=== PATIENT | female | born 1985 | race Caucasian/White ===

== ENCOUNTER 2020-03-11 08:04 | Outpatient (CLI) | payer OTHER, SELFPAY ==
--- NOTE | ~2020-03-11 | US_ITS ---
US thyroid INDICATION: Follow-up thyroid nodule. History of previous benign biopsy. TECHNIQUE: Real-time sonographic images of the thyroid gland were obtained. COMPARISON: Ultrasound dated 06/01/2019 and 12/07/2016 FINDINGS: The right thyroid lobe measures 5.1 x 3.6 x 2.3 cm. The left thyroid lobe measures 2.1 x 1 .4 x 0.8 cm. In the right lobe there is a 3.5 cm solid hyperechoic, wider than tall, smoothly margina tyler mass without definite internal calcifications, TR 3. In the left lobe there is a 2.7 cm cystic no dule, TR 1. IMPRESSION: 1. Stable right thyroid nodule dating back to 12/07/2016, likely benign. Reviewed, dictated and finalized at location B.
--- NOTE | ~2020-03-11 | XR_ITS ---
EXAMINATION: XR barium swallow DATE: 03/11/2020 09:05 INDICATION: Dysphagia. TECHNIQUE: The patient drank thick barium, gas-producing crystals, and thin barium. Fluoroscopic spot radiographs of the hypopharynx and esophagus were obtained. Fluoroscopy exposure time was 1.7 minut es. COMPARISON: None. FINDINGS: There is somewhat nodular mucosal contour at the anterior aspect of the vallecula. There is some asym metry to the piriform sinuses appears smaller with less caudal extension on the left without a discre te mass. The esophagus is normal without mass or stricture. Esophageal motility is normal. There is n o hiatal hernia. There was no gastroesophageal reflux with provocative maneuvers. IMPRESSION: 1. Mild asymmetry to the hypopharynx with smaller left piriform sinus but without discrete mass. Ther e is also nonspecific mucosal nodularity along the anterior vallecula which could be related to the l ingual tonsils. Consider laryngoscopy for direct visualization. 2. Normal esophagus. Reviewed, dictated and finalized at location A. IMPRESSION: 1. Mild asymmetry to the hypopharynx with smaller left piriform sinus but witho ut discrete mass. There is also nonspecific mucosal nodularity along the anteri or vallecula which could be related to the lingual tonsils. Consider laryngosco py for direct visualization. 2. Normal esophagus.
== END 2020-03-11 08:05 | disposition home or self-care (01) ==
LOC: ANHIMG 08:10
PROVIDERS: PCP Emergency Medicine; Visit Provider Otolaryngology
DX: E04.1 Nontoxic single thyroid nodule (principal)
CPT/HCPCS: 74220; 76536

== ENCOUNTER 2020-04-08 11:15 | Outpatient (CLI) | payer OTHER, SELFPAY ==
--- NOTE | 2020-04-08 11:17 | ECG_ITS ---
Measurements Intervals [place] Rate: 94 P: DC: 0 QRS: 17 QRSD: 101 T: 44 QT: 349 QTc: 438 Interpretive Statements SINUS OR ECTOPIC ATRIAL RHYTHM BASELINE ARTIFACT- I, II, III, AVR, AVL, AVF BORDERLINE ECG Electronically Signed On 04-08-2020 11:36:09 CDT by Atilio Hinojosa D.O.
[2020-04-08 12:03] LABS: Blood Urea Nitrogen 11 mg/dL (7-17); Calcium 9.2 mg/dL (8.4-10.2); Carbon Dioxide 30 mmol/L (22-30); Chloride 101 mmol/L (98-107)
[2020-04-08 12:04] LABS: Anion Gap 7 mmol/L (8-16); Estimated Glomerular Filt Rate > 60; Glucose 260 mg/dL (65-105); Potassium 4.2 mmol/L (3.4-5.0); Sodium 138 mmol/L (137-145)
== END 2020-04-08 11:16 | disposition home or self-care (01) ==
LOC: ANHSURGERY 11:17
PROVIDERS: Anesthesiology; PCP Emergency Medicine; Visit Provider Otolaryngology
DX: Z01.810 Encounter for preprocedural cardiovascular examination (principal); Z01.812 Encounter for preprocedural laboratory examination; Z51.81 Encounter for therapeutic drug level monitoring; E78.5 Hyperlipidemia, unspecified
CPT/HCPCS: 36415; 80048; 93005

== ENCOUNTER 2020-04-13 00:23 | Outpatient (CLI) | payer OTHER, SELFPAY ==
[2020-04-13 17:37] LABS: SARS-CoV-2 RNA PCR Negative
== END 2020-04-13 00:24 | disposition home or self-care (01) ==
LOC: ANHCOVIDDT 00:24
PROVIDERS: PCP Emergency Medicine; Visit Provider Otolaryngology
DX: Z01.812 Encounter for preprocedural laboratory examination (principal); Z20.828 Contact with and (suspected) exposure to other viral communicable diseases
CPT/HCPCS: 87635; C9803; U0003

== ENCOUNTER 2020-04-16 01:02 | Day surgery (SDC) | payer OTHER, SELFPAY ==
[2020-04-04 10:20] VITALS: BMI 38.3
--- NOTE | 2020-04-10 08:15 | PM.HPGS ---
History of Present Illness History of Present Illness Consent: Risks, benefits, and alternatives have been discussed and questions answered. Patient agrees to proceed with procedure. Chief complaint: Thyroid Nodule Narrative: Germania Stover is a 34 year old female is having a right thyroidectomy for a right thyroid nodule Review of Systems Review of Systems: All systems reviewed & are unremarkable except as noted in HPI and below PMFSH Past Medical History Medical History (Updated 03/25/20 @ 15:34 by Alexandra Lagunas) Depression HLD (hyperlipidemia) Pre-diabetes Family History Family History (Updated 03/08/18 @ 15:45 by DOCTOR UNKNOWN) Father Carcinoma of colon, Onset Age: 55 Social History Social History Smoking status: Never smoker Alcohol intake: never Spiritual care concerns: No Meds Home Medications and Allergies Home Medications Medication Instructions Recorded Confirmed Type buspirone 7.5 mg tablet 15 mg PO BID 07/16/19 04/04/20 History cholecalciferol (vitamin D3) 1,250 50,000 unit PO 2XW 07/16/19 04/04/20 History mcg (50,000 unit) tablet lorazepam 2 mg tablet 2 mg PO DAILY PRN 07/16/19 04/04/20 History amlodipine 5 mg PO DAILY 04/04/20 04/04/20 History fenofibrate nanocrystallized 48 mg PO DAILY 04/04/20 04/04/20 History losartan-hydrochlorothiazide 1 tablet PO DAILY 04/04/20 04/04/20 History Allergies Allergy/AdvReac Type Severity Reaction Status Date / Time No Known Allergies Allergy Verified 04/04/20 10:20 Assessment and Plan Additional Plan she is having a right thyroidectomy
[2020-04-16] VITALS (8 sets, daily range): BP systolic 131–149; BP diastolic 79–89; PULSE 93–115; RESP 16–19; TEMP 36.7–37.2; O2SAT 91–99
--- NOTE | 2020-04-16 06:14 | PM.HPGS ---
History of Present Illness History of Present Illness Consent: Risks, benefits, and alternatives have been discussed and questions answered. Patient agrees to proceed with procedure. Chief complaint: Thyroid Nodule Narrative: Germania Stover is a 34 year old female With a right thyroid nodule admitted for a right thyroidectomy Review of Systems Review of Systems: All systems reviewed & are unremarkable except as noted in HPI and below PMFSH Past Medical History Medical History (Updated 03/25/20 @ 15:34 by Alexandra Lagunas) Depression HLD (hyperlipidemia) Pre-diabetes Family History Family History (Updated 03/08/18 @ 15:45 by DOCTOR UNKNOWN) Father Carcinoma of colon, Onset Age: 55 Social History Social History Smoking status: Never smoker Alcohol intake: never Spiritual care concerns: No Meds Home Medications and Allergies Home Medications Medication Instructions Recorded Confirmed Type buspirone 7.5 mg tablet 15 mg PO BID 07/16/19 04/04/20 History cholecalciferol (vitamin D3) 1,250 50,000 unit PO 2XW 07/16/19 04/04/20 History mcg (50,000 unit) tablet lorazepam 2 mg tablet 2 mg PO DAILY PRN 07/16/19 04/04/20 History fenofibrate nanocrystallized 48 mg PO DAILY 04/04/20 04/04/20 History amlodipine 5 mg tablet See Rx Instructions .ROUTE 04/10/20 Rx .COMPLEX #30 tablet losartan 100 See Rx Instructions .ROUTE 04/10/20 Rx mg-hydrochlorothiazide 12.5 mg .COMPLEX #30 tablet tablet Allergies Allergy/AdvReac Type Severity Reaction Status Date / Time No Known Allergies Allergy Verified 04/04/20 10:20 Assessment and Plan Additional Plan Plan is a right thyroidectomy
--- NOTE | 2020-04-16 06:15 | WPDHPUPDATE1 ---
History and Physical Update Update Date/Time: 04/16/20 06:15 History and Physical has been reviewed, including an updated exam of the patient. There are NO changes in the patient's condition. Risks, benefits, and alternatives have been discussed and questions answered. Patient agrees to proceed with procedure.
[2020-04-16 08:39] LABS: Glucose Point of Care 247 (65-105)
[2020-04-16] MEDS: LACTATED RINGERS 1,000 ML 30 ML IV CONT (08:40)
[2020-04-16] MEDS: ACETAMINOPHEN 500 MG TABLET 1000 MG PO (08:41)
--- NOTE | 2020-04-16 09:14 | WPDANESEPPF ---
Anes - Initial Pre Proc Eval Procedure: Operation Date: 04/16/20 10:00 Proposed Procedures p Right Thyroidectomy - Peewee Whittington MD Date/Time: 04/16/20 09:14 Surgeon: Peewee Whittington MD Pre Op Diagnosis: Thyroid Nodule Patient Data Age: 34 Gender: F Height: 1.8 m Weight: 127.6 kg Last Vital Signs Temp 36.7 C 04/16/20 08:19 Pulse 99 04/16/20 08:19 Resp 16 04/16/20 08:19 BP 142/80 H 04/16/20 08:19 Pulse Ox 99 04/16/20 08:19 Allergies Allergy/AdvReac Type Severity Reaction Status Date / Time No Known Allergies Allergy Verified 04/16/20 08:46 Home Medications Medication Instructions Recorded Confirmed Type buspirone 7.5 mg tablet 15 mg PO BID 07/16/19 04/16/20 History cholecalciferol (vitamin D3) 1,250 50,000 unit PO 2XW 07/16/19 04/16/20 History mcg (50,000 unit) tablet lorazepam 2 mg tablet 2 mg PO DAILY PRN 07/16/19 04/16/20 History fenofibrate nanocrystallized 48 mg PO DAILY 04/04/20 04/16/20 History amlodipine 5 mg PO DAILY 04/16/20 04/16/20 History losartan-hydrochlorothiazide 1 tablet PO DAILY 04/16/20 04/16/20 History Laboratory Tests 04/16/20 08:36 POC Capillary Glucose 247 mg/dl H mg/dl (65-105) Patient hx anesthesia problems: none Family hx anesthesia problems: none PMFSH Past Medical History Medical History (Updated 04/16/20 @ 09:19 by Flako Ann MD) Anxiety Depression HLD (hyperlipidemia) HTN (hypertension) Obesity Pre-diabetes Thyroid nodule Family History Family History (Updated 03/08/18 @ 15:45 by DOCTOR UNKNOWN) Father Carcinoma of colon, Onset Age: 55 Social History Social History Smoking status: Never smoker Alcohol intake: never Spiritual care concerns: No Anes - Eval Final PreProcedure Day of Procedure 04/16/20 09:14 Patient weight: obese Heart: regular rate and rhythm Lungs: clear to auscultation and normal air movement Airway: Mallampati scale class II Neurological: alert and oriented Last oral intake: >/= 8 hours ASA classification: III Emergent: no Anesthetic plan: proceed Anesthesia type and monitoring: general ETT Informed Consent: The patient's anesthetic plan and its attendant risks and benefits were discussed with the patient/family/POA. Questions were solicited and answers provided to the satisfaction of the patient/family/POA.
--- NOTE | 2020-04-16 10:09 | PM.PROC ---
Procedure Note - Detailed Date of procedure: 04/16/20 Pre-op diagnosis: Thyroid Nodule Right thyroid nodule Post-op diagnosis: same Procedure performed: Thyroidectomy Postoperative Discharge Instructions Dr[facility] This is an information sheet to tell you some things to expect and some things not to expect when you leave the hospital after having a Thyroidectomy surgery. Please follow any specific instructions Dr. Sotelo has given you. 1. Keep the incision dry for 24 hours after surgery. Remove dressing tomorrow. After that you may get the neck wet. Pat the incision dry following a shower. Do not scrub with soap or wash cloth for the first 10 days. 2. If you have stitches to be removed, a follow up visit will be planned for removal. If your incision has been closed with dermabond (glue), this not to be removed, it will dissolve into your skin as the incision begins to heal. If steri strips are present, do not remove them until they begin to curl (usually within 7-10 days). As they begin to curl, they may be removed. Do not force steri strips off an incision. 3. Swelling at the incision site will go away in 4-6 weeks. The pink line left from the incision, will begin to fade slowly over the next 6-12 months. 4. Avoid having too much sun or sunburns while the incision is healing. Use a sunscreen or wear a scarf for protection. 5. Your incision may feel itchy while it heals. Avoid rubbing or scratching if possible. Two weeks following surgery you may begin to use a moisturizing cream along the incision. 6. Commons problems following a thyroidectomy include numbness of the skin under the chin or above the incision. This is normal and should go away in a few weeks. 7. You may feel a lump or pressure in your throat during swallowing for the next few days. This is not of concern and will go away. 8. You may feel neck stiffness, tightness, a pulling feeling, mild aching, chest discomfort, headache, ear pain or congestion. Please take the pain medication that has been prescribed to you as directed. 9. Your voice may be hoarse or weak. Pitch or tone may be changed. You may have difficulty singing. This usually goes back to normal over 6 weeks to 6 months. 10. Please notify Dr. Whittington if you have a temperature greater then 101F or continued drainage from the incision, repeated choking, difficulty breathing, severe pain or increasing in swelling and redness. 11. Do not undergo strenuous activity until your first postoperative visit to the doctor?s office and the doctor has stated that you may do so. 12. No driving a car until you are able to turn the neck side to side, which may take 1-2 weeks. No driving while under the influence of narcotic pain medication. 13. Follow up with Dr. Whittington in 1 week. Revised 02/08 Description of procedure: Thyroidectomy Postoperative Discharge Instructions Dr[facility] This is an information sheet to tell you some things to expect and some things not to expect when you leave the hospital after having a Thyroidectomy surgery. Please follow any specific instructions Dr. Sotelo has given you. 1. Keep the incision dry for 24 hours after surgery. Remove dressing tomorro
[2020-04-16] MEDS: ceFAZolin 3 GM/D5W 100 ML 100 ML IVPB (10:11)
[2020-04-16] MEDS: LIDO 1%/EPINEPHRINE 1:100,000 20 ML VIAL 5 ML INFILTRATE (10:30)
--- NOTE | 2020-04-16 11:58 | PM.PROC ---
Procedure Note - Detailed Date of procedure: 04/16/20 Pre-op diagnosis: Thyroid Nodule thyroid nodule Post-op diagnosis: same Procedure performed: right thyroidectomy Description of procedure: Thyroidectomy Postoperative Discharge Instructions Dr[facility] This is an information sheet to tell you some things to expect and some things not to expect when you leave the hospital after having a Thyroidectomy surgery. Please follow any specific instructions Dr. Sotelo has given you. 1. Keep the incision dry for 24 hours after surgery. Remove dressing tomorrow. After that you may get the neck wet. Pat the incision dry following a shower. Do not scrub with soap or wash cloth for the first 10 days. 2. If you have stitches to be removed, a follow up visit will be planned for removal. If your incision has been closed with dermabond (glue), this not to be removed, it will dissolve into your skin as the incision begins to heal. If steri strips are present, do not remove them until they begin to curl (usually within 7-10 days). As they begin to curl, they may be removed. Do not force steri strips off an incision. 3. Swelling at the incision site will go away in 4-6 weeks. The pink line left from the incision, will begin to fade slowly over the next 6-12 months. 4. Avoid having too much sun or sunburns while the incision is healing. Use a sunscreen or wear a scarf for protection. 5. Your incision may feel itchy while it heals. Avoid rubbing or scratching if possible. Two weeks following surgery you may begin to use a moisturizing cream along the incision. 6. Commons problems following a thyroidectomy include numbness of the skin under the chin or above the incision. This is normal and should go away in a few weeks. 7. You may feel a lump or pressure in your throat during swallowing for the next few days. This is not of concern and will go away. 8. You may feel neck stiffness, tightness, a pulling feeling, mild aching, chest discomfort, headache, ear pain or congestion. Please take the pain medication that has been prescribed to you as directed. 9. Your voice may be hoarse or weak. Pitch or tone may be changed. You may have difficulty singing. This usually goes back to normal over 6 weeks to 6 months. 10. Please notify Dr. Whittington if you have a temperature greater then 101F or continued drainage from the incision, repeated choking, difficulty breathing, severe pain or increasing in swelling and redness. 11. Do not undergo strenuous activity until your first postoperative visit to the doctor?s office and the doctor has stated that you may do so. 12. No driving a car until you are able to turn the neck side to side, which may take 1-2 weeks. No driving while under the influence of narcotic pain medication. 13. Follow up with Dr. Whittington in 1 week. Revised 02/08 Anesthesia: GLMA Surgeon: Peewee Whittington MD Pathology: yes Complications: No immediate complications Condition: stable Disposition: PACU Findings: right thyroid nodule
[2020-04-16] MEDS: ONDANSETRON INJ 4 MG/2 ML VIAL IV PUSH (12:39)
--- NOTE | 2020-04-17 07:15 | PM.PROC ---
Procedure Note - Detailed Date of procedure: 04/16/20 Pre-op diagnosis: Thyroid Nodule thyroid nodule right-sided Post-op diagnosis: same Procedure performed: right thyroidectomy Description of procedure: Patient prepped and draped usual fashion duction general anesthesia a low collar incision was made and subplatysmal flaps elevated midline strap muscle divided the [] thyroid was identified a large cyst was identified in the [] thyroid lobe with the the ligature of the superior mid middle middle pedicles were removed the isthmus was divided the parathyroid was identified and left undisturbed the recurrent laryngeal nerve was identified hematuria placed for hemostasis and closed in layers with chromic and Monocryl Anesthesia: GLMA and GETA Surgeon: Peewee Whittington MD Estimated blood loss (mL): 10 Drains: No Packing: No Pathology: yes Complications: No immediate complications Condition: stable Disposition: PACU Findings: right thyroid nodule
== END 2020-04-16 13:25 | disposition home or self-care (01) ==
PROVIDERS: PCP Emergency Medicine; Visit Provider Otolaryngology
PROC: (CPT 60220; principal; 2020-04-16 10:00)
DX: E04.9 Nontoxic goiter, unspecified (principal); I10 Essential (primary) hypertension; E78.5 Hyperlipidemia, unspecified; R73.03 Prediabetes; F41.8 Other specified anxiety disorders; E66.9 Obesity, unspecified; Z68.39 Body mass index [BMI] 39.0-39.9, adult
CPT/HCPCS: 60220; 88307; A9270; J0690; J2250; J2405; J3010; J7120

== ENCOUNTER → 2020-10-12 02:45 | Outpatient (CLI) | payer OTHER, SELFPAY ==
[2020-10-12 19:44] LABS: SARS-CoV-2 RNA PCR Negative
== END ==
PROVIDERS: PCP Emergency Medicine; Visit Provider Internal Medicine Gastroenterology
DX: Z01.812 Encounter for preprocedural laboratory examination (principal); Z20.822 Contact with and (suspected) exposure to COVID-19
CPT/HCPCS: C9803; U0003; U0005

== ENCOUNTER 2020-10-16 00:18 | Day surgery (SDC) | payer OTHER, SELFPAY ==
[2020-10-04 09:41] VITALS: BMI 39.0
[2020-10-16 09:49] VITALS: BP 152/84; PULSE 91; RESP 16; TEMP 36.4; O2SAT 98; BMI 38.0
[2020-10-16] MEDS: LACTATED RINGERS 1,000 ML 150 ML IV CONT (10:00)
[2020-10-16 10:08] LABS: Glucose Point of Care 165 (65-105)
--- NOTE | 2020-10-16 10:29 | WPDANESEPPF ---
Anes - Initial Pre Proc Eval Procedure: Operation Date: 10/16/20 10:45 Proposed Procedures p Screening Colonoscopy - Maco Maldonado MD Date/Time: 10/16/20 10:29 Surgeon: Maco Maldonado MD Pre Op Diagnosis: neoplasm screening, family hx colon CA Patient Data Age: 35 Gender: F Height: 5 ft 11 in Weight: 123.7 kg Last Vital Signs Temp 97.6 F 10/16/20 09:49 Pulse 91 10/16/20 09:49 Resp 16 10/16/20 09:49 BP 152/84 H 10/16/20 09:49 Pulse Ox 98 10/16/20 09:49 Allergies Allergy/AdvReac Type Severity Reaction Status Date / Time No Known Allergies Allergy Verified 10/16/20 09:44 Home Medications Medication Instructions Recorded Confirmed Type cholecalciferol (vitamin D3) 1,250 50,000 unit PO 2XW 07/16/19 10/16/20 History mcg (50,000 unit) tablet metformin 500 mg tablet 500 mg PO BID #180 tablet 09/23/20 10/16/20 Rx amlodipine 5 mg tablet See Rx Instructions .ROUTE 10/04/20 10/16/20 Rx .COMPLEX #90 tablet buspirone 5 mg PO BID 10/04/20 10/16/20 History fenofibrate nanocrystallized 48 mg See Rx Instructions .ROUTE 10/04/20 10/16/20 Rx tablet .COMPLEX #90 tablet loratadine [Claritin] 10 mg PO DAILY 10/04/20 10/16/20 History losartan 100 See Rx Instructions .ROUTE 10/04/20 10/16/20 Rx mg-hydrochlorothiazide 12.5 mg .COMPLEX #90 tablet tablet Laboratory Tests 10/16/20 09:54 POC Capillary Glucose 165 mg/dl H mg/dl (65-105) Patient hx anesthesia problems: none Family hx anesthesia problems: none PMFSH Past Medical History Medical History Anxiety Depression HLD (hyperlipidemia) HTN (hypertension) Obesity Pre-diabetes Thyroid nodule Family History Family History Father Carcinoma of colon, Onset Age: 55 Social History Social History Smoking status: Never smoker Alcohol intake: never Living arrangements: with family Gender identity (if verbalized by the patient): Female Spiritual care concerns: No Anes - Eval Final PreProcedure Day of Procedure 10/16/20 10:29 Patient weight: obese Heart: regular rate and rhythm Lungs: clear to auscultation Airway: Mallampati scale class II Neurological: alert and oriented Last oral intake: >/= 8 hours ASA classification: III Emergent: no Anesthetic plan: proceed Anesthesia type and monitoring: general GIVS and standard monitoring Informed Consent: The patient's anesthetic plan and its attendant risks and benefits were discussed with the patient/family/POA. Questions were solicited and answers provided to the satisfaction of the patient/family/POA.
--- NOTE | 2020-10-16 10:58 | PM.HPGS ---
History of Present Illness History of Present Illness Consent: Risks, benefits, and alternatives have been discussed and questions answered. Patient agrees to proceed with procedure. Chief complaint: neoplasm screening, family hx colon CA Narrative: Germania Stover is a 35 year old female with colon cancer in her father at 40's, this is her first colonoscopy Review of Systems Constitutional: Constitutional: Denies headache(s) and Denies weakness Eyes: Eyes: Denies blurry vision ENT: Reports Normal hearing present, Denies headache(s) and Denies neck pain Cardiovascular: Cardiovascular: Denies chest pain and Denies dyspnea Respiratory: Respiratory: Denies dyspnea Gastrointestinal: Gastrointestinal: Reports no additional gastrointestinal complaints Genitourinary: Genitourinary: Denies dysuria Musculoskeletal: Musculoskeletal: Denies neck pain Integumentary/Breasts: Skin/Breast: Denies dry skin Neurologic: Reports Normal hearing present, Denies headache(s) and Denies weakness Psychiatric: Psychiatric: Denies anxiety Endocrine: Endocrine: Denies change in body appearance Hematologic/Lymphatic: Hematologic/Lymphatic: Denies easy bleeding Allergic/Immunologic: Allergic/Immunologic: Denies urticaria PMFSH Past Medical History Medical History Anxiety Depression HLD (hyperlipidemia) HTN (hypertension) Obesity Pre-diabetes Thyroid nodule Family History Family History Father Carcinoma of colon, Onset Age: 55 Social History Social History Smoking status: Never smoker Alcohol intake: never Living arrangements: with family Gender identity (if verbalized by the patient): Female Spiritual care concerns: No Meds Home Medications and Allergies Home Medications Medication Instructions Recorded Confirmed Type cholecalciferol (vitamin D3) 1,250 50,000 unit PO 2XW 07/16/19 10/16/20 History mcg (50,000 unit) tablet metformin 500 mg tablet 500 mg PO BID #180 tablet 09/23/20 10/16/20 Rx amlodipine 5 mg tablet See Rx Instructions .ROUTE 10/04/20 10/16/20 Rx .COMPLEX #90 tablet buspirone 5 mg PO BID 10/04/20 10/16/20 History fenofibrate nanocrystallized 48 mg See Rx Instructions .ROUTE 10/04/20 10/16/20 Rx tablet .COMPLEX #90 tablet loratadine [Claritin] 10 mg PO DAILY 10/04/20 10/16/20 History losartan 100 See Rx Instructions .ROUTE 10/04/20 10/16/20 Rx mg-hydrochlorothiazide 12.5 mg .COMPLEX #90 tablet tablet Allergies Allergy/AdvReac Type Severity Reaction Status Date / Time No Known Allergies Allergy Verified 10/16/20 09:44 Vital Signs Vital Signs - 24 hr 10/16/20 09:49 Temperature 97.6 F Pulse Rate 91 Respiratory Rate 16 Blood Pressure 152/84 H Pulse Oximetry 98 Exam Const: General: comfortable and no acute distress HENMT: General nose exam: Normal nares present Eyes: General: appearance normal, both eyes and all related structures Neck: Neck: no JVD Resp: Auscultation: clear to auscultation bilaterally Cardio: Rate: regular rate Rhythm: regular rhythm GI: Inspection: non-distended GI Palp: Yes Soft to palpation Skin: General skin exam: normal color Neuro: General: gait normal Speech: normal speech Extrem: General: normal to inspection Psych: Mental Status: mental status grossly normal Assessment and Plan Assessment and plan (1) Family history of colon cancer in father: Code(s): Z80.0 - Family history of malignant neoplasm of digestive organs Status: Acute Assessment and Plan: colonoscopy
[2020-10-16 11:29] VITALS: BP 132/87; PULSE 79; RESP 18; O2SAT 99
[2020-10-16 11:39] VITALS: BP 137/86; PULSE 75; RESP 21; O2SAT 99
[2020-10-16 11:49] VITALS: BP 143/90; PULSE 77; RESP 14; O2SAT 100
== END 2020-10-16 12:11 | disposition home or self-care (01) ==
PROVIDERS: PCP Emergency Medicine; Visit Provider Internal Medicine Gastroenterology
PROC: 0DJD8ZZ Inspection of Lower Intestinal Tract, Via Natural or Artificial Opening Endoscopic (ICD-10-PCS; CPT 45378; principal; 2020-10-16 10:45)
DX: Z12.11 Encounter for screening for malignant neoplasm of colon (principal); K63.5 Polyp of colon; Z80.0 Family history of malignant neoplasm of digestive organs; Z79.84 Long term (current) use of oral hypoglycemic drugs; I10 Essential (primary) hypertension; E78.5 Hyperlipidemia, unspecified; R73.03 Prediabetes; F41.8 Other specified anxiety disorders; E66.9 Obesity, unspecified; Z68.38 Body mass index [BMI] 38.0-38.9, adult
CPT/HCPCS: 45385; 82948; 88305; J2704; J7120

== ENCOUNTER 2020-10-23 09:01 | Emergency (ER) | payer OTHER, SELFPAY ==
[2020-10-23 09:12] VITALS: BP 182/86; PULSE 93; RESP 14; TEMP 36.1; O2SAT 100
--- NOTE | 2020-10-23 09:43 | ED.GENADULT ---
HPI - General Adult General Chief complaint: Back Pain/Injury <TRACEE Elias Last Filed: 10/23/20 09:50> Stated complaint: back pain <TRACEE Elias Last Filed: 10/23/20 09:50> Time Seen by Provider: 10/23/20 09:07 <TRACEE Elias Last Filed: 10/23/20 09:50> Source: patient <TRACEE Elias Last Filed: 10/23/20 09:50> Mode of arrival: ambulatory <TRACEE Elias Last Filed: 10/23/20 09:50> Limitations: no limitations <TRACEE Elias Last Filed: 10/23/20 09:50> History of Present Illness HPI narrative: Patient is a 35-year-old female who presents to emergency department for evaluation of left lower back pain over the SI region that radiates down the leg to the foot with tingling patient with history of chronic low back pain with surgery roughly 15 years ago patient had recent colonoscopy and then a day after which developed this pain patient has been taking ibuprofen with minimal improvement patient has otherwise not been seen for this complaint presents in no distress patient denies recent illness or other complaints and notes that she has not had any bowel or urinary issues <TRACEE Elias Last Filed: 10/23/20 09:50> Related Data Home medications: Home Medications Medication Instructions Recorded Confirmed cholecalciferol (vitamin D3) 1,250 50,000 unit PO 2XW 07/16/19 10/16/20 mcg (50,000 unit) tablet buspirone 5 mg PO BID 10/04/20 10/16/20 loratadine [Claritin] 10 mg PO DAILY 10/04/20 10/16/20 <TRACEE Elias Last Filed: 10/23/20 09:50> Allergies/adverse reactions: Allergies Allergy/AdvReac Type Severity Reaction Status Date / Time No Known Allergies Allergy Verified 10/16/20 09:44 <TRACEE Elias Last Filed: 10/23/20 09:50> Review of Systems Review of Systems: All systems reviewed & are unremarkable except as noted in HPI and below <TRACEE Elias Last Filed: 10/23/20 09:50> [facility] Past Medical History Medical History: Medical History Anxiety Depression Family history of colon cancer in father HLD (hyperlipidemia) HTN (hypertension) Obesity Pre-diabetes Thyroid nodule <Toñito Pulido PA-C - Last Filed: 10/23/20 09:50> Family History Family History: Family History Father Carcinoma of colon, Onset Age: 55 <Toñito Pulido PA-C - Last Filed: 10/23/20 09:50> Social History Social History: Social History Smoking status: Never smoker Alcohol intake: never Gender identity (if verbalized by the patient): Female Spiritual care concerns: No <Toñito Pulido PA-C - Last Filed: 10/23/20 09:50> Exam Narrative: Exam Narrative: GENERAL: Well-appearing, obese, and in no acute distress. HEAD: Normocephalic, atraumatic. EYES: PERRLA and EOMI. ENT: Nares clear, no rhinorrhea or epistaxis. Mucous membranes moist. NECK: Supple. No adenopathy or masses. CHEST: Clear to auscultation. No respiratory distress. No wheezes rales or rhonchi HEART: Regular rate and rhythm. No murmur heard. Normal peripheral pulses. ABDOMEN: Soft, nontender, nondistended EXTREMITIES: Normal range of motion. No edema. Tender over the left SI region no rashes or other abnormalities no midline or right-sided tenderness SKIN: Warm, dry, no rash. NEURO: No focal deficits. Alert and oriented x3. Cranial nerves II through XII grossly intact. Normal speech and gait PSYCH: Normal mood and affect. <Toñito Pulido PA-C - Last Filed: 10/23/20 09:50> Course Course Emergency Course: Patient will be treated with medications advised to follow with primary care patient took ibuprofen this morning. Patient felt appropriate for outpatient reevaluation ABCs and vital signs intact and
[2020-10-23 09:56] VITALS: BP 151/86; PULSE 83; RESP 14; O2SAT 99
== END 2020-10-23 09:56 | disposition home or self-care (01) ==
PROVIDERS: Emergency Provider General Practice; PCP Emergency Medicine
DX: M53.3 Sacrococcygeal disorders, not elsewhere classified (principal); F41.9 Anxiety disorder, unspecified; F32.9 Major depressive disorder, single episode, unspecified; E78.5 Hyperlipidemia, unspecified; I10 Essential (primary) hypertension; R73.03 Prediabetes; E66.9 Obesity, unspecified; Z68.39 Body mass index [BMI] 39.0-39.9, adult
CPT/HCPCS: 99283

== ENCOUNTER 2020-10-30 14:31 | Outpatient (CLI) | payer OTHER, SELFPAY ==
--- NOTE | ~2020-10-30 | XR_ITS ---
EXAMINATION: XR lumbar spine 2-3V DATE: 10/30/2020 14:50 INDICATION: Low back pain. Left-sided sciatica. TECHNIQUE: 3 views of lumbar spine were obtained. COMPARISON: CT abdomen and pelvis 12/23/2016 FINDINGS: Bone alignment is normal. There are Schmorl's nodes at most levels. There is mildly decreas ed disc height at L2-L3, moderately decreased disc height at L3-L4 and L5-S1, and severely decreased disc height at L4-L5. There are endplate osteophytes at all levels. There is multilevel facet joint o steoarthritis, severe on the left at L5-S1. Surgical clips in the right upper quadrant are likely fro m cholecystectomy. IMPRESSION: 1. Severe lumbar spondylosis. Reviewed, dictated and finalized at location A.
== END 2020-10-30 14:32 | disposition home or self-care (01) ==
PROVIDERS: PCP Emergency Medicine; Visit Provider Emergency Medicine
DX: M47.817 Spondylosis without myelopathy or radiculopathy, lumbosacral region (principal)
CPT/HCPCS: 72100

== ENCOUNTER 2020-11-22 09:45 | Outpatient (RCR) | payer OTHER, SELFPAY ==
--- NOTE | 2020-11-14 11:09 | PTOPEVAL ---
PHYSICAL THERAPY EVALUATION AND PLAN OF CARE Thank you for referring Germania Stover to [facility].? The patient is scheduled to be seen for therapy? 2x/week for 4 weeks. Please review, sign, date and return this plan of care GUTIERREZ. I agree with and certify that the following plan of care is medically necessary. Referring Physician Date Attending Provider: Jace Porter MD Evaluation Outpatient Past Medical History Neurological History Hx Neurological Disorders No Significant History Cardiovascular History Hx Heart Murmur Yes: CHILD Hx Hypercholesterolemia Yes Hx Hypertension Yes Respiratory History Hx Respiratory Disorders No Significant History Gastrointestinal History Hx Cholecystectomy Yes Genitourinary History Hx Genitourinary Disorders No Significant History Musculoskeletal History Hx Spinal Surgery Yes: lumbar herniated disc repair 2002 Hematological History Hx Hematological Disorders No Significant History Endocrine History Hx Diabetes Yes Hx Thyroidectomy Yes: 2020 HEENT History Hx Tonsillectomy Yes Integumentary History Hx Skin Disorders No Significant History Reproductive History Hx Section Yes Hx Other Reproductive Disorders Yes: Bilateral Salpingectomy, LAPAROSCOPY FOR OVARIAN CYSTS Psychosocial History Hx Anxiety Yes Hx Depression Yes Pain History History of Any Previous or Ongoing No Significant History Instance of Pain Anesthesia History Hx Post-Op Nausea/Vomiting Yes Diagnosis low back pain Onset 10/16/20 Subjective Information Germania is here today with c/ Query Text:As Reported By Patient/ o onset of low back pain that Family she reports is now more a sciatic pain in both glutes - described as a burning - and pain in her hips that makes it feels like she can't stand up . She did initially have tingling in the left foot, but no longer. 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
--- NOTE | 2020-11-19 10:35 | PCPTNOTE ---
Patient did not show up for scheduled appointment this date. Called Pt and left message about missed appointment and reminded pt of upcoming appointment on Wednesday11/22/2020 @ 09:45.
--- NOTE | 2020-11-28 16:09 | PCPTNOTE ---
Patient called & cancelled scheduled appointment this date due to no typists supervisor.
--- NOTE | 2020-12-03 10:22 | PCPTNOTE ---
Patient did not show up for scheduled appointment this date. Left voicemail about missed appointment and upcoming appointment on 12/03/2020 @ 11:00am. This is Pt's second N/S.
--- NOTE | 2020-12-05 11:38 | PCPTNOTE ---
Patient did not show up for scheduled appointment this date. Left voicemail about missed appointment and reminded Pt of re-evaluation upcoming on Wednesday12/10/20 @ 10:00. This is Pt's third N/S.
--- NOTE | 2020-12-05 16:50 | PCPTNOTE ---
PHYSICAL THERAPY DISCHARGE NOTE Attending Provider: Jace Porter MD Patient:Germania Stover Date of :1985 Patient has not returned for any further treatments since 11/22/2020, therefore she will be discharged at this time. Patient?s initial visit was on 11/14/2020 had a total of 2 visits. The goals have not been assessed. Thank you for referring this patient to [facility]. Please review, sign, date and return this discharge summary GUTIERREZ. I have been updated about the patient's current status and I agree with discharge from the above service at this time. Referring Physician Date
== END 2020-12-06 09:54 | disposition home or self-care (01) ==
LOC: ANHPT 09:45
PROVIDERS: PCP Emergency Medicine; Visit Provider Emergency Medicine
DX: M46.96 Unspecified inflammatory spondylopathy, lumbar region (principal); M47.816 Spondylosis without myelopathy or radiculopathy, lumbar region
CPT/HCPCS: 97014; 97110; 97140; 97162; G0283

== ENCOUNTER 2021-02-24 14:13 | Outpatient (CLI) | payer OTHER, SELFPAY ==
--- NOTE | ~2021-02-24 | US_ITS ---
EXAMINATION: US pelvic complete w TV DATE: 02/24/2021 14:50 INDICATION: Pelvic pain. TECHNIQUE: Multiple transabdominal and transvaginal sonographic images of the pelvis were obtained. COMPARISON: Pelvis ultrasound 05/12/2015 FINDINGS: TRANSABDOMINAL ULTRASOUND: There is no free fluid in the pelvis. TRANSVAGINAL ULTRASOUND: The uterus measures 7.9 x 4.9 x 5.0 cm. The endometrial complex measures 6 mm in thickness. There are small nabothian cysts in the cervix. The right ovary measures 4.0 x 2.5 x 2.2 cm. The left ovary griselda sures 3.6 x 2.5 x 2.3 cm. There is normal vascular flow in the ovaries. IMPRESSION: 1. Normal pelvis. Reviewed, dictated and finalized at location A. IMPRESSION: 1. Normal pelvis.
== END 2021-02-24 14:14 | disposition home or self-care (01) ==
PROVIDERS: PCP Emergency Medicine; Visit Provider Nurse Practitioner
DX: R10.2 Pelvic and perineal pain (principal)
CPT/HCPCS: 76830; 76856

== ENCOUNTER 2021-04-15 09:04 | Emergency (ER) | payer OTHER, SELFPAY ==
--- NOTE | ~2021-04-15 | CT_ITS ---
EXAMINATION: CT brain wo con DATE: 04/15/2021 10:34 INDICATION: Frontal headache. TECHNIQUE: Computed tomography (CT) of the head was performed without intravenous contrast. The mA wa s adjusted according to patient size. Iterative reconstruction technique was employed. The dose-lengt h product was 605.33 mGy-cm. COMPARISON: Head CT 12/23/2016 FINDINGS: There is no intracranial hemorrhage, acute infarction, or abnormal intracranial mass lesion . The ventricles are normal in size. The paranasal sinuses are clear. The orbits are normal. The mast oid air cells are normal. IMPRESSION: 1. Normal brain. Reviewed, dictated and finalized at location A. IMPRESSION: 1. Normal brain.
[2021-04-15 09:08] VITALS: BP 185/97; PULSE 118; RESP 18; TEMP 36.5; O2SAT 100
[2021-04-15 09:31] VITALS: BP 158/85; PULSE 115; RESP 15; O2SAT 98
[2021-04-15] MEDS: LORazepam (*CRX) 0.5 MG TABLET 1 MG PO (09:56)
--- NOTE | 2021-04-15 10:17 | ED.GENADULT ---
HPI - General Adult General Chief complaint: Recheck/Abnormal Lab/Rx Stated complaint: htn Time Seen by Provider: 04/15/21 09:41 Source: patient and RN notes reviewed Mode of arrival: ambulatory Limitations: no limitations History of Present Illness HPI narrative: Patient drove herself to the emergency room complaining of elevated blood pressure at home. Patient had a regular visit to family physician 1 week ago, blood pressure found to be elevated, amlodipine was doubled. Currently patient on losartan and amlodipine. Patient complaining of frontal headache over the last 3 days, denies any fever, chills, nausea, vomiting, chest pain, shortness of breath. Patient reports a lot of stress lately. Patient also reports that her blood pressure at home runs 160/90. On arrival to the emergency room was 185/97, 20 minutes later 158/85, 1 mg of Ativan orally was given, 10 minutes later blood pressure is 147/85. Patient denies focal deficit. Patient is fully vaccinated for COVID-19. Related Data Allergies Allergy/AdvReac Type Severity Reaction Status Date / Time No Known Allergies Allergy Verified 04/15/21 09:36 Review of Systems Review of Systems: CONSTITUTIONAL: Denies fever, chills, or sweats. EYES: Denies visual changes, redness, or discharge. ENT: Denies rhinorrhea, congestion, sore throat, or otalgia. CARDIOVASCULAR: Denies chest pain, palpitations, or edema. RESPIRATORY: Denies cough or dyspnea. GASTROINTESTINAL: Denies abdominal pain, nausea, vomiting, or diarrhea. GENITOURINARY: Denies dysuria or hematuria. SKIN: Denies rash or itching. MUSCULOSKELETAL: Denies back pain, joint pain, or myalgia. NEUROLOGIC: Denies headache, numbness, or weakness. PSYCHIATRIC: Denies anxiety or depression. Exam Narrative: General appearance: Well-developed, well-nourished Skin: Normal color Head: Normocephalic, nontraumatic Eyes: Clear conjunctiva ENT: Oropharynx normal, ears normal, nose normal Neck: Supple, nontender Chest and respiratory: Airway patent, no respiratory distress, no accessory muscle use Heart: Regular rate/rhythm Abdomen: Soft, nontender, no organomegaly, quiet bowel sounds Vascular: Normal peripheral pulses, normal capillary refill. Musculoskeletal: Normal range of motion, nontender back Neurologic: Alert and oriented ?3, ESOL INSTRUCTOR is normal as tested, no gross motor deficit Course Course Emergency Course: Stable Vital Signs Vital signs: Vital Signs Temperature 36.5 C 04/15/21 09:08 Pulse Rate 118 H 04/15/21 09:08 Respiratory Rate 18 04/15/21 09:08 Blood Pressure 185/97 H 04/15/21 09:08 Pulse Oximetry 100 04/15/21 09:08 Temperature 36.5 C 04/15/21 09:08 Pulse Rate 115 H 04/15/21 09:31 Respiratory Rate 15 04/15/21 09:31 Blood Pressure 158/85 H 04/15/21 09:31 Pulse Oximetry 98 04/15/21 09:31 Medical Decision Making MDM Narrative Medical decision making narrative: Patient presents with frontal headache, elevated blood pressure and distress. Patient blood pressure improved after Ativan, increase the suspicious of stress-induced hypertension. Differential Diagnosis Differential Diagnosis: Anxiety, depression, headache, elevated blood pressure Vital Signs Vital Signs: Vital Signs Temperature 36.5 C 04/15/21 09:08 Pulse Rate 118 H 04/15/21 09:08 Respiratory Rate 18 04/15/21 09:08 Blood Pressure 185/97 H 04/15/21 09:08 Pulse Oximetry 100 04/15/21 09:08 Temperature 36.5 C 04/15/21 09:08 Pulse Rate 115 H 04/15/21 09:31 Respiratory Rate 15 04/15/21 09:31 Blood Pressure 158/85 H 04/15/21 09:31 Pulse Oximetry 98 04/15/21 09:31 Imaging Data Radiologist's impression: Jose M
[2021-04-15] MEDS: ACETAMINOPHEN 325 MG TABLET 650 MG PO (10:48)
[2021-04-15] MEDS: IBUPROFEN 600 MG TABLET PO (10:48)
[2021-04-15 11:40] VITALS: BP 158/94; PULSE 98; RESP 16; O2SAT 97
== END 2021-04-15 11:41 | disposition home or self-care (01) ==
PROVIDERS: Emergency Provider Emergency Medicine; PCP Emergency Medicine
DX: F41.9 Anxiety disorder, unspecified (principal); R51.9 Headache, unspecified; I10 Essential (primary) hypertension
CPT/HCPCS: 70450; 99284; A9270

== ENCOUNTER 2021-07-22 14:16 | Emergency (ER) | payer OTHER, SELFPAY ==
[2021-07-22 14:43] VITALS: BP 169/96; PULSE 90; RESP 18; TEMP 37.4; O2SAT 100
[2021-07-22 15:04] LABS: Add Urine Microscopic? NO; Appearance Urine Clear (Clear); Bilirubin Urine Negative (Negative); Blood Urine Negative (Negative); Color Urine Yellow (Yellow); Glucose Urine UA Negative (Negative); Ketones Urine Negative (Negative); Leukocyte Esterase Ur Negative LEU/UL (Negative); Nitrate Urine Negative (Negative); Protein Urine Negative (Negative); Specific Grav Ur 1.016 (1.001-1.035); Urobilinogen Urine Negative mg/dL (<2.0)
[2021-07-22 15:05] LABS: Basophils Percent Auto 0.4 % (0.2-1.2); Eosinophils Absolute Auto 0.2 K/mm3 (0-0.3); Eosinophils Percent Auto 1.9 % (0-4.4); Hematocrit 37.2 % (37.0-47.0); Hemoglobin 12.2 g/dL (12.0-15.0); Immature Granulocyte Absolute 0.04 K/mm3 (0.00-0.031); Immature Granulocyte Percent A 0.4 % (0-0.5); Lymphocytes Absolute Auto 3.83 K/mm3 (0.9-3.2); Mean Corpuscular HGB Conc 32.8 g/dl (32-36); Mean Corpuscular Hemoglobin 28.6 pg (26-34); Mean Corpuscular Volume 87.1 fl (80-100); Mean Platelet Volume 9.5 fl (7.4-10.4); Monocytes Absolute Auto 0.4 K/mm3 (0.1-0.6); Monocytes Percent Auto 4.1 % (2.6-8.5); Neutrophils Absolute Auto 5.6 K/mm3 (1.3-6.7); Neutrophils Percent Auto 55.2 % (45.5-73.1); Platelet Count Result 309 k/mm3 (150-375); Red Blood Count 4.27 M/mm3 (4.2-5.4); White Blood Count 10.1 K/mm3 (4.5-10.0)
[2021-07-22 15:17] LABS: Alanine Aminotransferase 28 U/L (4-35); Albumin Level 4.9 g/dL (3.5-5.1); Alkaline Phosphatase 64 U/L (38-126); Anion Gap 16 mmol/L (8-16); Aspartate Amino Transferase 27 U/L (14-36); Bilirubin,Total 0.5 mg/dL (0.2-1.3); Blood Urea Nitrogen 14 mg/dL (7-17); Calcium 9.8 mg/dL (8.4-10.2); Carbon Dioxide 21 mmol/L (22-30); Chloride 104 mmol/L (98-107); Estimated CRCL calculation 112 ml/min; Estimated Glomerular Filt Rate > 60; Glucose 116 mg/dL (65-110); Lipase 113 U/L (23-300); Potassium 3.6 mmol/L (3.4-5.0); Sodium 141 mmol/L (137-145)
--- NOTE | 2021-07-22 15:50 | ED.ABDPAIN ---
HPI - Abdominal Pain General Chief Complaint: Abdominal Pain Stated Complaint: Abdominal pain Time Seen by Provider: 07/22/21 15:27 Source: patient and RN notes reviewed Limitations: no limitations History of Present Illness HPI narrative: 35-year-old female with history of anxiety, diabetes and hypertension and a Covid infection approximately 1 week ago presents emerged department complaining of left upper quadrant abdominal pain for approximately 1 week. Patient states she does have history of GERD and does take omeprazole daily. Patient states she also does take 600 mg of ibuprofen sometimes twice a day for chronic back pain. Patient reports since getting Covid she has had worsening left upper quadrant abdominal pain that is worsened with eating. Patient denies emesis and denies any blood in her emesis. Patient denies any black tarry stools. Patient is not on any blood thinners. Patient has been taking her omeprazole and has not missed any doses. Related Data Home Medications Medication Instructions Recorded Confirmed cholecalciferol (vitamin D3) 1,250 50,000 unit PO 2XW 07/16/19 04/07/21 mcg (50,000 unit) tablet buspirone 5 mg PO BID 10/04/20 04/07/21 loratadine [Claritin] 10 mg PO DAILY 10/04/20 04/07/21 Allergies Allergy/AdvReac Type Severity Reaction Status Date / Time No Known Allergies Allergy Verified 07/22/21 09:33 Review of Systems Review of Systems: CONSTITUTIONAL: Denies fever, chills, or sweats. EYES: Denies visual changes, redness, or discharge. ENT: Denies rhinorrhea, congestion, sore throat, or otalgia. CARDIOVASCULAR: Denies chest pain, palpitations, or edema. RESPIRATORY: Denies cough or dyspnea. GASTROINTESTINAL: Left upper quadrant abdominal pain worsened with eating GENITOURINARY: Denies dysuria or hematuria. SKIN: Denies rash or itching. MUSCULOSKELETAL: Denies back pain, joint pain, or myalgia. NEUROLOGIC: Denies headache, numbness, or weakness. PSYCHIATRIC: Denies anxiety or depression. All systems reviewed & are unremarkable except as noted in HPI and below PMFSH Past Medical History Medical History Anxiety Depression Family history of colon cancer in father HLD (hyperlipidemia) HTN (hypertension) Obesity Pre-diabetes Thyroid nodule Family History Family History Father Carcinoma of colon, Onset Age: 55 Social History Social History (System 07/22/21 @ 09:33 by Lucretia Vazquez) Smoking status: Never smoker Alcohol intake: never Gender identity (if verbalized by the patient): Female Spiritual care concerns: No Exam Narrative: APPEARANCE: Well appearing, no pain, no distress, well-nourished. HEAD: normocephalic, atraumatic. EYES: PERRLA/EOMI, conjunctivae clear. NOSE: Normal no drainage NECK: Supple. No adenopathy, no masses. RESPIRATORY: Airway patent, respirations nonlabored. Clear to auscultation bilaterally, no rales, rhonchi, wheezing. CARDIOVASCULAR: Regular rate and rhythm without murmurs rubs or gallops. ABDOMINAL: Soft, normal bowel sounds. Some epigastric and left upper quadrant tenderness to palpation. No other tenderness to palpation. No rebound. Benign abdomen MUSCULOSKELETAL: Moves all extremities. NEURO: Alert. Cranial nerves II through XII intact. SKIN: Warm, dry. Normal Color Course Course Emergency Course: Patient did feel significantly improved with a GI cocktail. Patient's labs were reviewed with the patient. Patient does have history of GERD and symptoms seem consistent with a gastritis. Patient was treated as such. Reexamination patient continues to have a nonsurgical abdomen. Patient was educated on the plan to decrease her NSAID intake and to have close follow-up with her primary care physician and with GI. All questions and concerns were addressed. Patient was improved and in no distress time of discharge from the [facility]
[2021-07-22] MEDS: BELLADONNA ALK/PHENOB ELIX 10 ML, MAG HYDROX/ALUMINUM HYD/SIMETH 30 ML, LIDOCAINE HCL 2... PO (15:52)
[2021-07-22 16:25] VITALS: BP 118/75; PULSE 78; RESP 16; O2SAT 100
== END 2021-07-22 16:26 | disposition home or self-care (01) ==
PROVIDERS: Emergency Provider Emergency Medicine; PCP Emergency Medicine
DX: K29.70 Gastritis, unspecified, without bleeding (principal); R10.12 Left upper quadrant pain; U07.1 COVID-19; K21.9 Gastro-esophageal reflux disease without esophagitis; F41.9 Anxiety disorder, unspecified; F32.A Depression, unspecified; E78.5 Hyperlipidemia, unspecified; I10 Essential (primary) hypertension; R73.03 Prediabetes; E66.9 Obesity, unspecified; Z68.37 Body mass index [BMI] 37.0-37.9, adult
CPT/HCPCS: 12002; 36415; 80053; 81003; 81025; 83690; 85025; 99282; 99283; A9270

== ENCOUNTER 2021-08-15 09:24 | Outpatient (CLI) | payer OTHER, SELFPAY ==
--- NOTE | ~2021-08-15 | US_ITS ---
EXAMINATION: US thyroid EXAM DATE: 08/15/2021 09:48 INDICATION: Thyroid nodule. TECHNIQUE: Multiple grayscale and Doppler images of the thyroid were obtained (by a technologist who performed the scan) and subsequently reviewed. Individual nodules and recommendations may be reporte d in accordance with TI-RADS system as designated by the 2017 ACR White Paper TI-RADS committee. Comp veroniqueson is made to prior examination from 03/11/2020. FINDINGS: The right there are lobe measures 5.7 x 2.9 x 3.2 cm, the left measuring 2.8 x 0.9 x 0.9 cm. Most of the right thyroid lobe size is accounted for by a nodule measuring 4.2 x 2.9 x 2.5 cm, solid (2 point s), hyperechoic (1 point), wider than tall, smooth well defined margin, without echogenic foci, categ ory TR3 for this nodule. Dimensions obtained in 03/11/2020, 3.5 x 2.8 x 1.8 cm, has increased in size . Correlating with an ultrasound from 12/07/16 reportedly patient had a previous biopsy of this nodule at [facility]. Left thyroid lobe has anechoic cyst. IMPRESSION: Increase in size of right thyroid nodule, reportedly previously biopsied. Reviewed, dictated and finalized at location G. [employer] IMPRESSION: Increase in size of right thyroid nodule, reportedly previously bio psied.
--- NOTE | ~2021-08-15 | MMUS_ITS ---
EXAMINATION: MM diagnostic andrea BI w kerri, US breast RT limited HISTORY: Palpable right breast abnormality. TECHNIQUE: Additional 3-D tomosynthesis images of the breasts were performed and synthetic 2-D images were generated. CAD analysis was submitted and interpreted. High resolution Limited right breast ult rasound was performed. COMPARISON: None BREAST PARENCHYMAL COMPOSITION: Breast composed of scattered areas of fibroglandular density. FINDINGS: MAMMOGRAPHIC FINDINGS: There are no suspicious masses, calcifications or architectural distortion in either breast to sugges t malignancy. There is asymmetric fibroglandular content in the upper outer quadrant of the right jerad ast. ULTRASOUND: Limited right breast ultrasound: In the area of palpable concern at 11:00, 3 cm from the nipple, there is a 2.1 x 2 x 0.5 cm oval slig htly hyperechoic mass with horizontally oriented septations and minimal internal vascularity, most li carlos benign lipoma. No other masses identified. IMPRESSION: 1. Probable benign right lipoma in the area of palpable concern at 11:00, 3 cm from the nipple. 2. Recommend 6 month follow-up right breast ultrasound BI-RADS category 3, probably benign findings. Reviewed, dictated and finalized at location A. 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 Probable benign right lipoma in the area of palpable concern at 11:00, 3 cm from the nipple. 2. Recommend 6 month follow-up right breast ultrasound BI-RADS category 3, probably benign findings.
== END 2021-08-15 09:25 | disposition home or self-care (01) ==
PROVIDERS: PCP Emergency Medicine; Visit Provider Obstetrics & Gynecology Gynecology
DX: N63.11 Unspecified lump in the right breast, upper outer quadrant (principal); E04.1 Nontoxic single thyroid nodule
CPT/HCPCS: 76536; 76642; 77062; 77066; G0279

== ENCOUNTER 2021-10-03 09:23 | Outpatient (CLI) | payer OTHER, SELFPAY ==
--- NOTE | ~2021-10-03 | US_ITS ---
EXAMINATION: US pelvic complete w TV DATE: 10/03/2021 10:29 INDICATION: Pelvic pain TECHNIQUE: Multiple transabdominal and endovaginal sonographic images of the pelvis were obtained. COMPARISON: 02/24/2021 FINDINGS: The uterus measures 8.0 x 5.9 x 5.0 cm. The endometrial complex measures 17 mm in thickness with het erogeneous appearance with small central hypoechoic regions within the more echogenic endometrial com plex at the fundus. Couple small anechoic nabothian cysts measuring up to 6 mm in maximal diameter Th e right ovary measures 5.5 x 5.7 x 4.5 cm. There is a 1.9 x 1.7 x 1.3 cm anechoic cyst at the periphe ry of the right ovary which abuts and exerts mass effect upon 3.5 x 3.4 x 2.7 cm heterogeneous solid isoechoic mass with peripheral vascular flow on color Doppler. There are multiple additional subcenti meter anechoic cysts along the periphery of the right ovary which could be seen with polycystic ovary disease. The left ovary measures 3.6 x 2.5 x 2.6 cm. Also with a few peripheral subcentimeter anecho ic cysts. Vascular flow is also identified within the left ovary on color Doppler.. Minimal amount of anechoic free fluid along the periphery of the right ovary. IMPRESSION: 1. 3.6 x 2.5 x 2.6 cm solid appearing masslike lesion in the right ovary which raises concern for hugo plasm. Differential would include an involuting corpus luteum cyst. Consider either further evaluatio n with contrast-enhanced MRI or short interval follow-up ultrasound in 6-10 weeks. 2. Thickened heterogeneous endometrial complex which may be related to phase of menstrual cycle. Ronit elate clinically in this could also be reassessed either ultrasound or MRI at the same time as the ri ght ovarian lesion. Reviewed, dictated and finalized at location B. IMPRESSION: 1. 3.6 x 2.5 x 2.6 cm solid appearing masslike lesion in the right ovary which raises concern for neoplasm. Differential would include an involuting corpus mirella teum cyst. Consider either further evaluation with contrast-enhanced MRI or geraldine rt interval follow-up ultrasound in 6-10 weeks. 2. Thickened heterogeneous endometrial complex which may be related to phase of menstrual cycle. Correlate clinically in this could also be reassessed either ultrasound or MRI at the same time as the right ovarian lesion.
== END 2021-10-03 09:24 | disposition home or self-care (01) ==
PROVIDERS: PCP Emergency Medicine; Visit Provider Nurse Practitioner
DX: R10.2 Pelvic and perineal pain (principal); N83.8 Other noninflammatory disorders of ovary, fallopian tube and broad ligament
CPT/HCPCS: 76830; 76856

== ENCOUNTER 2021-10-10 09:23 | Outpatient (CLI) | payer OTHER, SELFPAY ==
--- NOTE | 2021-10-10 09:35 | ECG_ITS ---
Measurements Intervals [place] Rate: 90 P: 36 MA: 128 QRS: 19 QRSD: 93 T: 32 QT: 372 QTc: 456 Interpretive Statements SINUS RHYTHM NONSPECIFIC ST & T-WAVE ABNORMALITY ABNORMAL ECG COMPARED TO ECG 04/08/2020 11:48:31 SINUS RHYTHM NOW PRESENT T-WAVE ABNORMALITY NOW PRESENT Electronically Signed On 10-10-2021 15:48:50 CDT by Yuriy Sunshine M.D.
[2021-10-10 10:14] LABS: Anion Gap 9 mmol/L (8-16); Blood Urea Nitrogen 17 mg/dL (7-17); Calcium 8.8 mg/dL (8.4-10.2); Carbon Dioxide 24 mmol/L (22-30); Chloride 103 mmol/L (98-107); Estimated Glomerular Filt Rate > 60; Glucose 217 mg/dL (65-110); Potassium 3.7 mmol/L (3.4-5.0); Sodium 136 mmol/L (137-145)
== END 2021-10-10 09:24 | disposition home or self-care (01) ==
LOC: ANHSURGERY 09:26
PROVIDERS: Anesthesiology; PCP Emergency Medicine; Visit Provider Otolaryngology
DX: E11.9 Type 2 diabetes mellitus without complications (principal); I10 Essential (primary) hypertension; Z01.818 Encounter for other preprocedural examination; R94.31 Abnormal electrocardiogram [ECG] [EKG]
CPT/HCPCS: 36415; 80048; 93005

== ENCOUNTER 2021-10-14 00:10 | Day surgery (SDC) | payer OTHER, SELFPAY ==
[2021-10-07 14:09] VITALS: BMI 38.4
--- NOTE | 2021-10-07 14:16 | SUR.PREOP ---
Addendum entered by Sho Mercer RN 10/10/21 07:06: PLEASE TAKE YOUR AMLODIPINE AT BEDTIME WEDNESDAY NIGHT 10/13, TAKE OTHER MEDS DIRECTED BELOW MORNING OF SURGERY. Addendum entered by Sho Mercer RN 10/08/21 10:58: PLEASE TAKE YOUR AMLODIPINE WITH A SIP OF WATER MORNING OF SURGERY ALONG WITH YOUR OTHER MEDS LISTED BELOW. Original Note: Report to the Outpatient Waiting Room, entrance under the green pavilion located off [facility], at time _0600_ on date _10/14/21 . OR Time: _729. - You and your visitor will be asked a series of questions to screen for COVID 19 for your protection. - A mask is required within the hospital. Preoperative COVID Testing Requirements: No COVID Test needed if: (proof is required; if not received patient will have Rapid Test prior to entry) - Patient has received COVID Vaccine at least 14 days prior to procedure date or - Patient has positive COVID test result within last 90 days of surgery date. COVID Test needed if above criteria is not met If not COVID vaccinated a COVID test must be conducted within 72 hours of surgery and patient is asked to isolate self from time of testing until procedure. You will go to the [facility] for your COVID testing. The [facility] site is located at the corner of [address] [facility]. You will only be called if COVID results are positive and your surgeon may reschedule your elective surgery date. Patients may have clear liquids (water, carbonated beverages, clear teas, apple juice) until 3 hours prior to surgery with a maximum of 20 ounces. - No food from midnight until time of surgery - Infants may have breast milk until 4 hours before surgery, formula 6 hours prior to surgery. - Children will be allowed to drink immediately following surgery. If applicable, please bring a bottle or sippy cup to assist with drinking. Juice, water, soda, and popsicles are readily available. For infants on formula, please bring formula the day of surgery. Pacifiers are allowed. Take the following medications with a SIP of water the morning of surgery: _unithroid,metoprolol,buspirone Medications to discontinue per physician n/a Date to take last dose Please no make-up, nail prydeinig, hairspray, perfume, deodorant, or body powder the day of surgery. No jewelry (including any body piercings) or valuables the day of surgery, leave them at home. Please take a shower or bath the night before, or the morning of, surgery with an antibacterial soap. Wear comfortable, loose fitting clothing. Children are encouraged to wear pajamas. - Jewelry must be removed prior to entering the operating room. Rings and piercings that are not removed may be cut off. - The hospital will not accept responsibility for valuables. - Please leave all valuables, including medications, at home the day of surgery. If you are going home after surgery, a licensed street flusher driver must drive you home. - NO public transportation without another adult. - We recommend that an adult stay with you for 24 hours following discharge. - We also recommend that you do not drive, make important decision, drink alcoholic beverages, or take any drugs that were not prescribed by your health care provider for at least 24 hours after your discharge time. For Pediatric surgeries, we recommend two adults accompany the child home (only one inside the building at this time). One visitor will be allowed to accompany the patient into the hospital. Patients visitor will be instructed to remain with patient at all times or leave the building. We will allow the visitor to come back to the postoperative area when patient is ready. Follow any additional instructions given to you from your surgeon. Telephone instructions given to julio c garber__and asked if any additional questions and then verbalized under
--- NOTE | 2021-10-08 09:48 | PM.HPGS ---
History of Present Illness History of Present Illness Consent: Risks, benefits, and alternatives have been discussed and questions answered. Patient agrees to proceed with procedure. Chief complaint: Right Thyroid Nodule Narrative: Germania Stover is a 36 year old female with a solitary right thyroid nodule admitted for elective excision Review of Systems Review of Systems: All systems reviewed & are unremarkable except as noted in HPI and below PMFSH Past Medical History Medical History Anxiety Depression Family history of colon cancer in father HLD (hyperlipidemia) HTN (hypertension) Obesity Pre-diabetes Thyroid nodule Family History Family History Father Carcinoma of colon, Onset Age: 55 Social History Social History Smoking status: Never smoker Alcohol intake: never Gender identity (if verbalized by the patient): Female Spiritual care concerns: No Comments social family medical past history all within normal normal limits Meds Home Medications and Allergies Home Medications Medication Instructions Recorded Confirmed Type cholecalciferol (vitamin D3) 1,250 50,000 unit PO 2XW 07/16/19 10/07/21 History mcg (50,000 unit) tablet buspirone 5 mg PO BID 10/04/20 10/07/21 History loratadine [Claritin] 10 mg PO DAILY 10/04/20 10/07/21 History metformin 1,000 mg tablet 1,000 mg PO BID #180 tablet 04/07/21 10/07/21 Rx atorvastatin 10 mg tablet 10 mg PO DAILY #90 tablet 04/14/21 10/07/21 Rx sitagliptin 50 mg tablet 50 mg PO DAILY #90 tablet 04/14/21 10/07/21 Rx metoprolol succinate 50 mg 50 mg PO DAILY #90 tablet 04/16/21 10/07/21 Rx tablet,extended release 24 hr amlodipine 10 mg tablet 10 mg PO DAILY #90 tablet 07/14/21 10/07/21 Rx fenofibrate nanocrystallized 45 mg PO DAILY 10/07/21 10/07/21 History levothyroxine [Unithroid] 25 mcg PO DAILY 10/07/21 10/07/21 History losartan-hydrochlorothiazide 1 tablet PO DAILY 10/07/21 10/07/21 History Allergies Allergy/AdvReac Type Severity Reaction Status Date / Time No Known Allergies Allergy Verified 10/07/21 13:50 Exam Narrative: chest clear heart murmurs abdomen soft extremities negative palpable righ Assessment and Plan Additional Plan plan right thyroidectomy
[2021-10-14] VITALS (7 sets, daily range): BP systolic 117–145; BP diastolic 60–70; PULSE 70–81; RESP 10–20; TEMP 36.1–36.4; O2SAT 92–100
--- NOTE | 2021-10-14 06:14 | WPDHPUPDATE1 ---
History and Physical Update Update Date/Time: 10/14/21 06:14 History and Physical has been reviewed, including an updated exam of the patient. There are NO changes in the patient's condition. Risks, benefits, and alternatives have been discussed and questions answered. Patient agrees to proceed with procedure.
[2021-10-14] MEDS: ACETAMINOPHEN 500 MG TABLET 1000 MG PO (06:33)
--- NOTE | 2021-10-14 06:33 | P.PNAN_ITS ---
Anes - Initial Pre Proc Eval Procedure: Operation Date: 10/14/21 07:30 Proposed Procedures p Right Thyroidectomy - Peewee Whittington MD Date/Time: 10/14/21 06:33 Surgeon: Peewee Whittington MD Pre Op Diagnosis: Right Thyroid Nodule Patient Data Age: 36 Gender: F Height: 1.8 m Weight: 125 kg Allergies Allergy/AdvReac Type Severity Reaction Status Date / Time No Known Allergies Allergy Verified 10/14/21 06:30 Home Medications Medication Instructions Recorded Confirmed Type cholecalciferol (vitamin D3) 1,250 50,000 unit PO 2XW 07/16/19 10/07/21 History mcg (50,000 unit) tablet buspirone 5 mg PO BID 10/04/20 10/14/21 History loratadine [Claritin] 10 mg PO DAILY 10/04/20 10/07/21 History metformin 1,000 mg tablet 1,000 mg PO BID #180 tablet 04/07/21 10/07/21 Rx atorvastatin 10 mg tablet 10 mg PO DAILY #90 tablet 04/14/21 10/07/21 Rx sitagliptin 50 mg tablet 50 mg PO DAILY #90 tablet 04/14/21 10/07/21 Rx metoprolol succinate 50 mg 50 mg PO DAILY #90 tablet 04/16/21 10/14/21 Rx tablet,extended release 24 hr fenofibrate nanocrystallized 45 mg PO DAILY 10/07/21 10/07/21 History levothyroxine [Unithroid] 25 mcg PO DAILY 10/07/21 10/07/21 History losartan-hydrochlorothiazide 1 tablet PO DAILY 10/07/21 10/07/21 History amlodipine 10 mg PO HS 10/09/21 10/09/21 History Patient hx anesthesia problems: post op nausea/vomiting Family hx anesthesia problems: none Results Review: All pre-operative results and documents have been reviewed as part of the pre-operative evaluation. [facility] Past Medical History Medical History Anxiety Depression Family history of colon cancer in father HLD (hyperlipidemia) HTN (hypertension) Obesity Pre-diabetes Thyroid nodule Family History Family History Father Carcinoma of colon, Onset Age: 55 Social History Social History Smoking status: Never smoker Alcohol intake: never Living arrangements: with family Gender identity (if verbalized by the patient): Female Spiritual care concerns: No Anes - Eval Final PreProcedure Day of Procedure 10/14/21 06:33 Patient weight: obese Heart: regular rate and rhythm Lungs: clear to auscultation and normal air movement Airway: Mallampati scale class II Neurological: alert and oriented Last oral intake: >/= 8 hours ASA classification: III Emergent: no Anesthetic plan: proceed Anesthesia type and monitoring: general ETT and standard monitoring Results Review: All pre-operative results and documents have been reviewed as part of the pre-operative evaluation. Informed Consent: The patient's anesthetic plan and its attendant risks and benefits were discussed with the patient/family/POA. Questions were solicited and answers provided to the satisfaction of the patient/family/POA.
[2021-10-14] MEDS: LACTATED RINGERS 1,000 ML 30 ML IV CONT ×2 (06:56→08:29)
[2021-10-14 07:05] LABS: Glucose Point of Care 206 mg/dl (65-105)
[2021-10-14] MEDS: ceFAZolin 3 GM/D5W 100 ML 100 ML IVPB (07:20)
[2021-10-14] MEDS: LIDO 1%/EPINEPHRINE/PF 1:200,000 30 ML VIAL XX (07:29)
--- NOTE | 2021-10-14 08:17 | W.PM.PROC2 ---
Procedure Note - Detailed Date of Procedure 10/14/21 Pre-op Diagnosis Right Thyroid Nodule Post-op Diagnosis Same Procedure Performed Right thyroidectomy Surgeon Peewee Whittington MD Description of Procedure Patient was prepped and draped fashion anesthesia a low collar incision was made through her prior incision subplatysmal flaps were elevated a large 4-6 cm mass in the right thyroid area was identified with the LigaSure dissection muscles were removed off of the prominence of the mass this mass was essentially removed sent for pathologic examination hemostasis obtained with bipolar cautery and closed laser chromic and subcuticular Monocryl
[2021-10-14 08:36] LABS: Glucose Point of Care 212 mg/dl (65-105)
== END 2021-10-14 10:15 | disposition home or self-care (01) ==
PROVIDERS: PCP Emergency Medicine; Visit Provider Otolaryngology
PROC: (CPT 60220; principal; 2021-10-14 07:30)
DX: E04.1 Nontoxic single thyroid nodule (principal); I10 Essential (primary) hypertension; E78.5 Hyperlipidemia, unspecified; R73.03 Prediabetes; F41.8 Other specified anxiety disorders; E66.9 Obesity, unspecified; Z68.37 Body mass index [BMI] 37.0-37.9, adult; Z79.84 Long term (current) use of oral hypoglycemic drugs
CPT/HCPCS: 60220; 82948; 88307; A9270; J0330; J0690; J1100; J2250; J2405; J2704; J7120

== ENCOUNTER 2021-11-18 07:40 | Emergency (ER) | payer OTHER, SELFPAY ==
[2021-11-18] VITALS (9 sets, daily range): BP systolic 129–160; BP diastolic 72–89; PULSE 71–90; RESP 11–19; TEMP 36.8; O2SAT 96–100
--- NOTE | 2021-11-18 08:27 | ECG_ITS ---
Measurements Intervals [place] Rate: 80 P: 4 [place]: 139 QRS: 23 QRSD: 92 T: 42 QT: 371 QTc: 429 Interpretive Statements SINUS RHYTHM NORMAL ECG Electronically Signed On 11-18-2021 8:59:36 CDT by Atilio Hinojosa D.O.
[2021-11-18 08:41] LABS: Basophils Absolute Auto 0.1 K/mm3 (0.0-0.1); Basophils Percent Auto 0.9 % (0.2-1.2); Eosinophils Absolute Auto 0.5 K/mm3 (0-0.3); Eosinophils Percent Auto 5.3 % (0-4.4); Hematocrit 40.3 % (37.0-47.0); Hemoglobin 12.9 g/dL (12.0-15.0); Immature Granulocyte Absolute 0.08 K/mm3 (0.00-0.031); Immature Granulocyte Percent A 0.9 % (0-0.5); Lymphocytes Absolute Auto 3.22 K/mm3 (0.9-3.2); Lymphocytes Percent Auto 37.3 % (18.3-44.2); Mean Corpuscular Hemoglobin 28.8 pg (26-34); Mean Platelet Volume 10.1 fl (7.4-10.4); Monocytes Absolute Auto 0.4 K/mm3 (0.1-0.6); Monocytes Percent Auto 4.9 % (2.6-8.5); Neutrophils Absolute Auto 4.4 K/mm3 (1.3-6.7); Neutrophils Percent Auto 50.7 % (45.5-73.1); Platelet Count Result 320 k/mm3 (150-375); Red Blood Count 4.48 M/mm3 (4.2-5.4); Red Cell Distribution Width 13.7 % (11.5-14.5); White Blood Count 8.6 K/mm3 (4.5-10.0)
[2021-11-18 08:52] LABS: Alanine Aminotransferase 26 U/L (6-35); Albumin Level 4.8 g/dL (3.5-5.1); Alkaline Phosphatase 67 U/L (38-126); Anion Gap 11 mmol/L (8-16); Aspartate Amino Transferase 28 U/L (14-36); Bilirubin,Total 0.5 mg/dL (0.2-1.3); Blood Urea Nitrogen 20 mg/dL (7-17); Calcium 9.3 mg/dL (8.4-10.2); Carbon Dioxide 22 mmol/L (22-30); Chloride 102 mmol/L (98-107); Estimated CRCL calculation 91 ml/min; Estimated Glomerular Filt Rate 57; Glucose 238 mg/dL (65-110); Potassium 3.8 mmol/L (3.4-5.0); Sodium 135 mmol/L (137-145)
[2021-11-18 09:03] LABS: Troponin I < 0.012 ng/mL (0.000-0.034)
[2021-11-18] MEDS: SODIUM CHLORIDE 0.9% IV 1,000 ML 999 ML IV CONT (10:00)
--- NOTE | 2021-11-18 10:23 | ED.DIZZY ---
HPI - Dizziness General Chief Complaint: Dizziness Stated Complaint: high BP Time Seen by Provider: 11/18/21 07:46 Source: patient and RN notes reviewed Mode of arrival: ambulatory Limitations: no limitations History of Present Illness HPI Narrative: This is a 36 year old female with history of hypertension, hypothyroidism, hyperlipidemia, DM who presents for evaluation of dizziness. She states this morning she was getting dressed. She was bending over and then she got dizzy when she stood up. This dizziness lasted for a few seconds. She also noted that her blood pressure was elevated at home with SBP 160s. Patient has hypertension and she has taken her medications this morning. she denies dizziness, chest pain, nausea, vomiting, sob, diarrhea. SH has history of heavy menstrual cycles but she denies history of blood transfusion of anemia. She just got of her menstrual cycle. MD elicited complaint: dizziness Onset (ago): minute(s) Timing: sudden onset Severity: mild Related Data Home Medications Medication Instructions Recorded Confirmed cholecalciferol (vitamin D3) 1,250 50,000 unit PO 2XW 07/16/19 10/21/21 mcg (50,000 unit) tablet buspirone 5 mg tablet 5 mg PO BID 10/04/20 10/21/21 loratadine 10 mg tablet (Claritin) 10 mg PO DAILY 10/04/20 10/21/21 levothyroxine 25 mcg tablet 25 mcg PO DAILY 10/07/21 10/21/21 (Unithroid) atorvastatin 10 mg tablet 20 mg PO DAILY 11/18/21 dapagliflozin 10 mg tablet tablet 11/18/21 11/18/21 (Farxiga) dulaglutide 0.75 mg/0.5 mL ea subcut 11/18/21 subcutaneous pen injector (Trulicity) Allergies Allergy/AdvReac Type Severity Reaction Status Date / Time No Known Allergies Allergy Verified 11/18/21 08:05 Review of Systems Review of Systems: All systems reviewed & are unremarkable except as noted in HPI and below Constitutional: Constitutional: Denies fatigue and Denies fever(s) Eyes: Eyes: Denies blurry vision ENT: Denies nasal congestion and Denies sinus pressure Cardiovascular: Cardiovascular: Denies chest pain, Denies rapid heart rate, Denies leg edema and Denies dyspnea Respiratory: Respiratory: Denies hemoptysis and Denies dyspnea Gastrointestinal: Gastrointestinal: Denies abdominal pain and Denies melena Musculoskeletal: Musculoskeletal: Denies numbness Neurologic: Denies Abnormal speech present, Denies focal weakness and Denies numbness Endocrine: Endocrine: Denies fatigue PMFSH Past Medical History Medical History Anxiety Depression Family history of colon cancer in father HLD (hyperlipidemia) HTN (hypertension) Obesity Pre-diabetes Thyroid nodule Family History Family History Father Carcinoma of colon, Onset Age: 55 Social History Social History Smoking status: Never smoker Alcohol intake: never Gender identity (if verbalized by the patient): Female Spiritual care concerns: No Exam Narrative: GENERAL: Well-appearing, well-nourished, and in no acute distress. HEAD: Normocephalic, atraumatic EYES: PERRLA and EOMI, conjunctiva clear without discharge EARS: TM's clear bilaterally without erythema or dullness NOSE: Nares clear, no rhinorrhea or epistaxis THROAT:Mucous membranes moist, Oropharynx normal without erythema, exudate, peritonsillar swelling or fluctuance NECK: Supple, without lymphadenopathy or mass RESPIRATORY: No respiratory distress, Airway patent, Respirations non-labored, Clear to auscultation without rales, rhonchi or wheeze HEART: Regular rate and rhythm. No murmur heard. Normal peripheral pulses. ABDOMEN: Soft, nontender, nondistended, normal active bowel sounds. No masses. No rebound or guarding, No organomegaly. EXTREMITIES: No edema, normal strength with full range of motion. SKIN: Warm, dry, normal color without rash NEURO: A
== END 2021-11-18 11:49 | disposition home or self-care (01) ==
PROVIDERS: Emergency Provider General Practice; PCP Emergency Medicine
DX: E11.65 Type 2 diabetes mellitus with hyperglycemia (principal); E86.0 Dehydration; I10 Essential (primary) hypertension; E03.9 Hypothyroidism, unspecified; E78.5 Hyperlipidemia, unspecified; F41.9 Anxiety disorder, unspecified; F32.A Depression, unspecified; Z79.84 Long term (current) use of oral hypoglycemic drugs; Z79.899 Other long term (current) drug therapy
CPT/HCPCS: 36415; 80053; 81025; 84484; 85025; 93005; 96360; 96361; 99284; J7030

== ENCOUNTER 2022-04-02 08:00 | Emergency (ER) | payer OTHER, SELFPAY ==
[2022-04-02] VITALS (12 sets, daily range): BP systolic 131–169; BP diastolic 68–88; PULSE 85–144; RESP 12–22; TEMP 36.5; O2SAT 97–100
--- NOTE | ~2022-04-02 | CT_ITS ---
EXAMINATION: CTA chest PE protocol DATE: 04/02/2022 14:37 INDICATION: Left chest pain. Shortness of breath. TECHNIQUE: Computed tomography angiography (CTA) of the chest was performed with 100 mL Omnipaque-350 intravenous contrast timed to evaluate the pulmonary arteries. Coronal maximum intensity projection 3D-reconstructions were created by the technologist. Automated exposure control and iterative reconst ruction technique were employed. The dose-length product was 948.36 mGy-cm. COMPARISON: Chest CT 12/23/16 FINDINGS: There is an 18 mm part-solid nodule in right lower lobe with 11 mm solid component, stable from 12/23/16, likely benign. No pleural effusion. The heart size is normal. No pericardial effusion. There is no pulmonary embolus. There is diffuse hepatic steatosis. There are changes of cholecystecto my. There is severe thoracic spondylosis. IMPRESSION: 1. No pulmonary embolus. Reviewed, dictated and finalized at location A. IMPRESSION: 1. No pulmonary embolus.
--- NOTE | 2022-04-02 08:09 | ECG_ITS ---
Measurements Intervals [place] Rate: 119 P: 57 NM: 159 QRS: 29 QRSD: 94 T: 53 QT: 364 QTc: 513 Interpretive Statements SINUS TACHYCARDIA NONSPECIFIC ST & T-WAVE ABNORMALITY ABNORMAL RHYTHM ECG COMPARED TO ECG 11/18/2021 08:40:00 SINUS TACHYCARDIA NOW PRESENT Electronically Signed On 04-02-2022 17:21:27 CDT by Antwan Ellis M.D.
[2022-04-02 08:46] LABS: Basophils Percent Auto 0.4 % (0.2-1.2); Eosinophils Absolute Auto 0.3 K/mm3 (0-0.3); Eosinophils Percent Auto 2.7 % (0-4.4); Hematocrit 39.6 % (37.0-47.0); Hemoglobin 12.9 g/dL (12.0-15.0); Immature Granulocyte Absolute 0.05 K/mm3 (0.00-0.031); Immature Granulocyte Percent A 0.5 % (0-0.5); Lymphocytes Absolute Auto 3.09 K/mm3 (0.9-3.2); Mean Corpuscular HGB Conc 32.6 g/dl (32-36); Monocytes Absolute Auto 0.5 K/mm3 (0.1-0.6); Monocytes Percent Auto 5.5 % (2.6-8.5); Neutrophils Absolute Auto 5.4 K/mm3 (1.3-6.7); Neutrophils Percent Auto 57.9 % (45.5-73.1); Platelet Count Result 271 k/mm3 (150-375); Red Blood Count 4.45 M/mm3 (4.2-5.4); White Blood Count 9.4 K/mm3 (4.5-10.0)
[2022-04-02 08:53] LABS: Alanine Aminotransferase 30 U/L (6-35); Albumin Level 4.8 g/dL (3.5-5.1); Alkaline Phosphatase 59 U/L (38-126); Anion Gap 16 mmol/L (8-16); Aspartate Amino Transferase 28 U/L (14-36); Bilirubin,Total 0.7 mg/dL (0.2-1.3); Blood Urea Nitrogen 16 mg/dL (7-17); Calcium 9.3 mg/dL (8.4-10.2); Carbon Dioxide 23 mmol/L (22-30); Chloride 98 mmol/L (98-107); Estimated CRCL calculation 113 ml/min; Estimated Glomerular Filt Rate > 60; Glucose 199 mg/dL (65-110); Lipase 135 U/L (23-300); Potassium 3.4 mmol/L (3.4-5.0); Sodium 137 mmol/L (137-145)
[2022-04-02 08:56] LABS: Prothrombin Time 12.8 Seconds (11.1-14.7)
[2022-04-02 08:57] LABS: Partial Thromboplastin Time 25.4 SECONDS (22.3-36.8)
[2022-04-02 09:05] LABS: Troponin I 0.013 ng/mL (0.000-0.034)
[2022-04-02] MEDS: LACTATED RINGERS 1,000 ML 999 ML IV CONT ×2 (10:24→14:14)
--- NOTE | 2022-04-02 10:55 | ED.GENADULT ---
HPI - General Adult General Chief complaint: Arrhythmia/Palpitations Stated complaint: anxiety, heart racing Time Seen by Provider: 04/02/22 08:12 History of Present Illness HPI narrative: 36-year-old female with past medical history of diabetes, hypertension, dyslipidemia, hypothyroidism status post thyroidectomy presents for evaluation. Patient states that she has had increasing anxiety over the past week which has required her to take her Xanax every day. Earlier today she noticed some pain in her abdomen which made her anxious. Subsequently she began to feel her heart racing at home. She denies chest pain, shortness of breath and is unsure what to attribute her recent increase in anxiety. Related Data Home Medications Medication Instructions Recorded Confirmed cholecalciferol (vitamin D3) 1,250 50,000 unit PO 2XW 07/16/19 10/21/21 mcg (50,000 unit) tablet buspirone 5 mg tablet 5 mg PO BID 10/04/20 10/21/21 loratadine 10 mg tablet (Claritin) 10 mg PO DAILY 10/04/20 10/21/21 levothyroxine 25 mcg tablet 25 mcg PO DAILY 10/07/21 10/21/21 (Unithroid) atorvastatin 10 mg tablet 20 mg PO DAILY 11/18/21 dapagliflozin 10 mg tablet tablet 11/18/21 11/18/21 (Farxiga) Allergies Allergy/AdvReac Type Severity Reaction Status Date / Time No Known Allergies Allergy Verified 02/17/22 15:43 Review of Systems Review of Systems: CONSTITUTIONAL: Denies fever, chills, or sweats. EYES: Denies visual changes, redness, or discharge. ENT: Denies rhinorrhea, congestion, sore throat, or otalgia. CARDIOVASCULAR: Denies chest pain, palpitations, or edema. RESPIRATORY: Denies cough or dyspnea. GASTROINTESTINAL: Denies abdominal pain, nausea, vomiting, or diarrhea. GENITOURINARY: Denies dysuria or hematuria. SKIN: Denies rash or itching. MUSCULOSKELETAL: Denies back pain, joint pain, or myalgia. NEUROLOGIC: Denies headache, numbness, or weakness. PSYCHIATRIC: Denies anxiety or depression. [facility] Past Medical History Medical History Anxiety Depression Family history of colon cancer in father HLD (hyperlipidemia) HTN (hypertension) Obesity Pre-diabetes Thyroid nodule Family History Family History Father Carcinoma of colon, Onset Age: 55 Social History Social History Smoking status: Never smoker Alcohol intake: never Substance use: never Substance use type: does not use Gender identity (if verbalized by the patient): Female Spiritual care concerns: No Agree to blood products: Yes Exam Narrative: GENERAL: Well-appearing, well-nourished, and in no acute distress. HEAD: Normocephalic, atraumatic. EYES: PERRLA and EOMI. ENT: Nares clear, no rhinorrhea or epistaxis. Mucous membranes moist. NECK: Supple. CHEST: Clear to auscultation. No respiratory distress. HEART: Regular rate and rhythm. No murmur heard. Normal peripheral pulses. ABDOMEN: Soft, nontender, nondistended, normal active bowel sounds. EXTREMITIES: Normal range of motion. No edema. SKIN: Warm, dry, no rash. NEURO: No focal deficits. Alert and oriented x3. PSYCH: Normal mood and affect. Course Vital Signs Vital signs: Vital Signs Temperature 97.7 F 04/02/22 08:03 Pulse Rate 120 H 04/02/22 08:03 Respiratory Rate 18 04/02/22 08:03 Blood Pressure 169/88 H 04/02/22 08:03 Pulse Oximetry 100 04/02/22 08:03 Oxygen Delivery Room Air 04/02/22 08:03 Temperature 97.7 F 04/02/22 08:03 Pulse Rate 116 H 04/02/22 10:18 Respiratory Rate 17 04/02/22 10:18 Blood Pressure 135/81 04/02/22 10:18 Pulse Oximetry 100 04/02/22 10:18 Oxygen Delivery Room Air 04/02/22 08:03 Medical Decision Making MDM Narrative Medical decision making narrative: 36-year-old anxious female presents with rapid heart rate and anxiety. Initial cardiac work-up is negativ
[2022-04-02 11:39] LABS: Free T4 Free Thyroxine 1.03 ng/mL (0.78-2.19)
[2022-04-02 12:56] LABS: Troponin I < 0.012 ng/mL (0.000-0.034)
[2022-04-02 14:52] LABS: Troponin I < 0.012 ng/mL (0.000-0.034)
== END 2022-04-02 15:56 | disposition home or self-care (01) ==
PROVIDERS: Emergency Provider Emergency Medicine; PCP Emergency Medicine
DX: R07.9 Chest pain, unspecified (principal); E78.5 Hyperlipidemia, unspecified; I10 Essential (primary) hypertension; E89.0 Postprocedural hypothyroidism; R73.03 Prediabetes; E66.9 Obesity, unspecified; Z68.39 Body mass index [BMI] 39.0-39.9, adult; F41.9 Anxiety disorder, unspecified; F32.A Depression, unspecified; Z79.84 Long term (current) use of oral hypoglycemic drugs; R00.0 Tachycardia, unspecified; R94.31 Abnormal electrocardiogram [ECG] [EKG]
CPT/HCPCS: 36415; 71275; 80053; 81025; 83690; 84439; 84443; 84484; 85025; 85610; 85730; 93005; 96360; 96361; 99284; J7120; Q9967

== ENCOUNTER 2022-05-07 10:52 | Outpatient (CLI) | payer OTHER, SELFPAY ==
--- NOTE | ~2022-05-07 | US_ITS ---
US breast RT limited DATE: 05/07/2022 11:26 INDICATION: Right breast lump TECHNIQUE: High-resolution ultrasound imaging and color flow imaging of right breast at area of compl aint of right breast lump at 11:00 3 cm from nipple COMPARISON: 08/15/2021 diagnostic bilateral mammogram and limited right breast ultrasound FINDINGS: No suspicious mass or shadowing or vascularity is detected IMPRESSION: BI-RADS Category 1: Negative Reviewed, dictated and finalized at Location [facility]. Reviewed, dictated and finalized at location A. [facility]
== END 2022-05-07 10:53 | disposition home or self-care (01) ==
PROVIDERS: PCP Emergency Medicine; Visit Provider Nurse Practitioner
DX: R92.8 Other abnormal and inconclusive findings on diagnostic imaging of breast (principal)
CPT/HCPCS: 76642

== ENCOUNTER 2023-08-09 02:14 | Day surgery (SDC) | payer OTHER, SELFPAY ==
[2023-07-23 13:57] VITALS: BMI 38.4
--- NOTE | 2023-08-06 11:34 | SUR.PREOP ---
Patient called regarding upcoming procedure. Reviewed preop instructions, appointment times, and procedure prep.
[2023-08-09 12:46] VITALS: BP 143/84; PULSE 69; RESP 20; TEMP 35.9; O2SAT 100; BMI 36.3
[2023-08-09] MEDS: LACTATED RINGERS 1,000 ML 150 ML IV CONT (12:57)
[2023-08-09 12:59] LABS: Glucose Point of Care 113 mg/dl (65-105)
--- NOTE | 2023-08-09 13:24 | WPDANESEPPF ---
Anes - Initial Pre Proc Eval Procedure: Operation Date: 08/09/23 14:00 Proposed Procedures p Colonoscopy - Maco Maldonado MD Date/Time: 08/09/23 13:24 Surgeon: Maco Maldonado MD Pre Op Diagnosis: Unspecified abdominal pain Patient Data Age: 37 Gender: F Height: 1.8 m Weight: 118.3 kg Last Vital Signs Temp 96.7 F L 08/09/23 12:46 Pulse 69 08/09/23 12:46 Resp 20 08/09/23 12:46 BP 143/84 H 08/09/23 12:46 Pulse Ox 100 08/09/23 12:46 O2 Del Method Room Air 08/09/23 12:46 Allergies Allergy/AdvReac Type Severity Reaction Status Date / Time No Known Allergies Allergy Verified 08/09/23 12:44 Home Medications Medication Instructions Recorded Confirmed Type cholecalciferol (vitamin D3) 1,250 50,000 unit PO 2XW 07/16/19 08/09/23 History mcg (50,000 unit) tablet buspirone 10 mg tablet 10 mg PO BID 08/03/22 08/09/23 History metoprolol succinate 50 mg See Rx Instructions .Route 02/01/23 08/09/23 Rx tablet,extended release 24 hr .COMPLEX #90 tabs atorvastatin 80 mg tablet See Rx Instructions .Route 03/11/23 08/09/23 Rx .COMPLEX #30 tabs amlodipine 10 mg tablet See Rx Instructions .Route 06/07/23 08/09/23 Rx .COMPLEX #90 tabs levothyroxine 125 mcg tablet See Rx Instructions .Route 06/14/23 08/09/23 Rx .COMPLEX #30 tabs dulaglutide 0.75 mg/0.5 mL See Rx Instructions .Route 06/23/23 08/09/23 Rx subcutaneous pen injector .COMPLEX #2 mL (Trulicity) losartan 100 See Rx Instructions .Route 06/23/23 08/09/23 Rx mg-hydrochlorothiazide 12.5 mg .COMPLEX #90 tabs tablet dapagliflozin propanediol 10 mg 10 mg PO DAILY 07/23/23 08/09/23 History tablet (Farxiga) alprazolam 0.5 mg tablet (Xanax) 0.5 mg PO BID PRN anxiety #30 tabs 07/27/23 08/09/23 Rx fenofibrate 160 mg tablet See Rx Instructions .Route 08/03/23 08/09/23 Rx .COMPLEX #30 tabs Laboratory Tests 08/09/23 12:56 POC Capillary Glucose 113 H mg/dl (65-105) Patient hx anesthesia problems: none Family hx anesthesia problems: none Results Review: All pre-operative results and documents have been reviewed as part of the pre-operative evaluation. PMFSH Past Medical History Medical History Anxiety Depression Family history of colon cancer in father HLD (hyperlipidemia) HTN (hypertension) Obesity Pre-diabetes Thyroid nodule Family History Family History Father Carcinoma of colon, Onset Age: 55 Social History Social History Smoking status: Never smoker Alcohol intake: never Substance use: never Substance use type: does not use Lack of Transportation: No Lack of Food: Often True Current Housing: I Have Housing Concerned About Future Housing: No Difficulty Paying Gas/Electric Bills: No Difficulty Paying for Meds: No Currently Unemployed: No Education: Associate Degree Difficulty w/ Childcare or Family Care: No Living arrangements: with family Gender identity (if verbalized by the patient): Female Spiritual care concerns: No Agree to blood products: Yes Anes - Eval Final PreProcedure Day of Procedure 08/09/23 13:24 Patient weight: obese Heart: regular rate and rhythm Lungs: clear to auscultation Airway: Mallampati scale class III Neurological: alert and oriented Last oral intake: >/= 8 hours ASA classification: III Emergent: no Anesthetic plan: proceed Anesthesia type and monitoring: general GIVS and standard monitoring Results Review: All pre-operative results and documents have been reviewed as part of the pre-operative evaluation. Informed Consent: The patient's anesthetic plan and its attendant risks and benefits were discussed with the patient/family/POA. Questions were solicited and answers provided to the satisfaction of the patient/family/P
--- NOTE | 2023-08-09 13:39 | PM.HPGS ---
History of Present Illness History of Present Illness Consent: Risks, benefits, and alternatives have been discussed and questions answered. Patient agrees to proceed with procedure. Chief complaint: Unspecified abdominal pain Narrative: Germania Stover is a 37 year old female with intermittent abdominal pain, h/o constipation. She had colon polyp in 2020, father with colon cancer Review of Systems Constitutional: Constitutional: Denies headache(s) and Denies weakness Eyes: Eyes: Denies blurry vision ENT: Reports Normal hearing present, Denies headache(s) and Denies neck pain Cardiovascular: Cardiovascular: Denies chest pain and Denies dyspnea Respiratory: Respiratory: Denies dyspnea Gastrointestinal: Gastrointestinal: Reports no additional gastrointestinal complaints Genitourinary: Genitourinary: Denies dysuria Musculoskeletal: Musculoskeletal: Denies neck pain Integumentary/Breasts: Skin/Breast: Denies dry skin Neurologic: Reports Normal hearing present, Denies headache(s) and Denies weakness Psychiatric: Psychiatric: Denies anxiety Endocrine: Endocrine: Denies change in body appearance Hematologic/Lymphatic: Hematologic/Lymphatic: Denies easy bleeding Allergic/Immunologic: Allergic/Immunologic: Denies urticaria PMFSH Past Medical History Medical History (Updated 08/09/23 @ 13:41 by Maco Maldonado MD) Abdominal pain Anxiety Depression Family history of colon cancer in father HLD (hyperlipidemia) HTN (hypertension) Obesity Pre-diabetes Thyroid nodule Family History Family History Father Carcinoma of colon, Onset Age: 55 Social History Social History Smoking status: Never smoker Alcohol intake: never Substance use: never Substance use type: does not use Lack of Transportation: No Lack of Food: Often True Current Housing: I Have Housing Concerned About Future Housing: No Difficulty Paying Gas/Electric Bills: No Difficulty Paying for Meds: No Currently Unemployed: No Education: Associate Degree Difficulty w/ Childcare or Family Care: No Living arrangements: with family Gender identity (if verbalized by the patient): Female Spiritual care concerns: No Agree to blood products: Yes Meds Home Medications and Allergies Home Medications Medication Instructions Recorded Confirmed Type cholecalciferol (vitamin D3) 1,250 50,000 unit PO 2XW 07/16/19 08/09/23 History mcg (50,000 unit) tablet buspirone 10 mg tablet 10 mg PO BID 08/03/22 08/09/23 History metoprolol succinate 50 mg See Rx Instructions .Route 02/01/23 08/09/23 Rx tablet,extended release 24 hr .COMPLEX #90 tabs atorvastatin 80 mg tablet See Rx Instructions .Route 03/11/23 08/09/23 Rx .COMPLEX #30 tabs amlodipine 10 mg tablet See Rx Instructions .Route 06/07/23 08/09/23 Rx .COMPLEX #90 tabs levothyroxine 125 mcg tablet See Rx Instructions .Route 06/14/23 08/09/23 Rx .COMPLEX #30 tabs dulaglutide 0.75 mg/0.5 mL See Rx Instructions .Route 06/23/23 08/09/23 Rx subcutaneous pen injector .COMPLEX #2 mL (Trulicity) losartan 100 See Rx Instructions .Route 06/23/23 08/09/23 Rx mg-hydrochlorothiazide 12.5 mg .COMPLEX #90 tabs tablet dapagliflozin propanediol 10 mg 10 mg PO DAILY 07/23/23 08/09/23 History tablet (Farxiga) alprazolam 0.5 mg tablet (Xanax) 0.5 mg PO BID PRN anxiety #30 tabs 07/27/23 08/09/23 Rx fenofibrate 160 mg tablet See Rx Instructions .Route 08/03/23 08/09/23 Rx .COMPLEX #30 tabs Allergies Allergy/AdvReac Type Severity Reaction Status Date / Time No Known Allergies Allergy Verified 08/09/23 12:44 Vital Signs Vital Signs - 24 hr 08/09/23 12:46 Temperature 96.7 F L Pulse Rate 69 Respiratory Rate 20 Blood Pressure 143/84 H Pulse Oximetry 100 Oxygen Delivery Room Air Exam Const: General: comfortable
[2023-08-09 14:01] VITALS: BP 117/66; PULSE 64; RESP 20; O2SAT 98
[2023-08-09 14:11] VITALS: BP 123/59; PULSE 60; RESP 20; O2SAT 99
[2023-08-09 14:21] VITALS: BP 124/71; PULSE 61; RESP 20; O2SAT 99
== END 2023-08-09 14:29 | disposition home or self-care (01) ==
PROVIDERS: PCP Emergency Medicine; Visit Provider Internal Medicine Gastroenterology
PROC: 0DJD8ZZ Inspection of Lower Intestinal Tract, Via Natural or Artificial Opening Endoscopic (ICD-10-PCS; CPT 45378; principal; 2023-08-09 14:00)
DX: R10.9 Unspecified abdominal pain (principal); I10 Essential (primary) hypertension; K64.8 Other hemorrhoids; K57.30 Diverticulosis of large intestine without perforation or abscess without bleeding; E78.5 Hyperlipidemia, unspecified; R73.03 Prediabetes; F41.9 Anxiety disorder, unspecified; F32.A Depression, unspecified; E66.9 Obesity, unspecified; Z68.36 Body mass index [BMI] 36.0-36.9, adult; Z79.85 Long-term (current) use of injectable non-insulin antidiabetic drugs; Z86.010 Personal history of colon polyps; Z80.0 Family history of malignant neoplasm of digestive organs
CPT/HCPCS: 45378; 82948; J2001; J2704; J7120

== ENCOUNTER 2023-11-10 15:39 | Outpatient (CLI) | payer OTHER, SELFPAY ==
--- NOTE | ~2023-11-10 | US_ITS ---
EXAMINATION: US pelvic complete w TV DATE: 11/10/2023 16:57 INDICATION: Abnormal uterine bleeding. Right oophorectomy. TECHNIQUE: Multiple transabdominal and transvaginal sonographic images of the pelvis were obtained. COMPARISON: Ultrasound 10/03/2021 FINDINGS: TRANSABDOMINAL ULTRASOUND: The uterus measures 7.5 x 5.3 x 5.4 cm. There is no free fluid in the pelvis. TRANSVAGINAL ULTRASOUND: The endometrial complex measures 10 mm in thickness. There are nabothian cysts in the cervix. The rig ht ovary is absent. The left ovary measures 4.1 x 2.6 x 3.6 cm. There is normal vascular flow in left ovary. IMPRESSION: 1. No etiology for abnormal uterine bleeding. Reviewed, dictated and finalized at location E.
== END 2023-11-10 15:40 | disposition home or self-care (01) ==
LOC: ANHIMG 15:42
PROVIDERS: PCP Emergency Medicine; Visit Provider Nurse Practitioner
DX: N93.9 Abnormal uterine and vaginal bleeding, unspecified (principal)
CPT/HCPCS: 76830; 76856

== ENCOUNTER 2024-01-14 07:55 | Outpatient (CLI) | payer OTHER, SELFPAY ==
[2024-01-14 08:35] LABS: Anion Gap 10 mmol/L (4-12); Blood Urea Nitrogen 19 mg/dL (7-17); Calcium 9.1 mg/dL (8.4-10.2); Carbon Dioxide 25 mmol/L (22-30); Chloride 103 mmol/L (98-107); Estimated Glomerular Filt Rate > 60; Glucose 115 mg/dL (65-110); Potassium 4.2 mmol/L (3.4-5.0); Sodium 138 mmol/L (137-145)
== END 2024-01-14 07:56 | disposition home or self-care (01) ==
LOC: ANHSURGERY 07:58
PROVIDERS: Anesthesiology; PCP Emergency Medicine; Visit Provider Obstetrics & Gynecology Gynecology
DX: E11.9 Type 2 diabetes mellitus without complications (principal)
CPT/HCPCS: 36415; 80048

== ENCOUNTER 2024-01-17 01:25 | Day surgery (SDC) | payer OTHER, SELFPAY ==
[2024-01-10 15:34] VITALS: BMI 36.2
--- NOTE | 2024-01-10 16:02 | PC.NURSE ---
Report to the Outpatient Waiting Room, entrance under the green pavilion located off [facility], at 0845 on 01-17-24. Planned Procedure Time: 1045. Time changes happen often and if your time is changed the preop area will call you the afternoon before. - You and your visitor will be asked to self-screen and do not enter if you have any COVID symptoms. - A mask is optional within the hospital at this time. Patients may have clear liquids (water, carbonated beverages, clear teas, apple juice) until 3 hours prior to surgery with a maximum of 20 ounces. 0745 - No food from midnight until time of surgery - Infants may have breast milk until 4 hours before surgery, formula 6 hours prior to surgery. - Children will be allowed to drink immediately following surgery. If applicable, please bring a bottle or sippy cup to assist with drinking. Juice, water, soda, and popsicles are readily available. For infants on formula, please bring formula the day of surgery. Pacifiers are allowed. Take the following medications with a SIP of water the morning of surgery: buspirone, levothyroxine, metoprolol, alprazolam if needed DO NOT STOP ANY OF YOUR OTHER PRESCRIPTION MEDICATIONS PRIOR TO SURGERY ?EXCEPT THE FOLLOWING Medications to discontinue per physician: vitamins and supplements Date to take last dose: 01-14-24 Please no make-up, nail armenian, hairspray, perfume, deodorant, or body powder the day of surgery. No jewelry (including any body piercings) or valuables the day of surgery, leave them at home. Please take a shower or bath the night before, or the morning of, surgery with an antibacterial soap. Wear comfortable, loose fitting clothing. Children are encouraged to wear pajamas. - Jewelry must be removed prior to entering the operating room. Rings and piercings that are not removed may be cut off. - The hospital will not accept responsibility for valuables. - Please leave all valuables, including medications, at home the day of surgery. If you are going home after surgery, a licensed local owner operator truck driver must drive you home. - NO public transportation without another adult if you receive anesthesia. - We recommend that an adult stay with you for 24 hours following discharge. - We also recommend that you do not drive, make important decision, drink alcoholic beverages, or take any drugs that were not prescribed by your health care provider for at least 24 hours after your discharge time. For Pediatric surgeries, we recommend two adults accompany the child home. Follow any additional instructions given to you from your surgeon. If you or anyone in your household have experienced Covid symptoms in the past week, please notify your surgeon or the nurse liaison at the phone number below for possible testing. Telephone instructions given to Germania Stover and asked if any additional questions and then verbalized understanding. Patient advised to call surgeon office or pre surgery nurse liaison [phone] if any additional questions.
--- NOTE | 2024-01-17 07:33 | WPDHPUPDATE1 ---
History and Physical Update Update Date/Time: 01/17/24 07:33 History and Physical has been reviewed, including an updated exam of the patient. There are NO changes in the patient's condition. Risks, benefits, and alternatives have been discussed and questions answered. Patient agrees to proceed with procedure.
--- NOTE | 2024-01-17 07:33 | PM.HPGS ---
History of Present Illness History of Present Illness Consent: Risks, benefits, and alternatives have been discussed and questions answered. Patient agrees to proceed with procedure. Chief complaint: abnormal uterine bleeding Narrative: Germania Stover is a 38 year old female with very heavy cycles. Pelvic ultrasound is normal. It was recommended to undergo D&C hysteroscopy for further evaluation. Risks of infection, bleeding, perforation, and possible pathology are discussed. Patient voices understanding and agrees to proceed. Review of Systems Review of Systems: not repeated day of surgery; patient states no changes in status PMFSH Past Medical History Medical History (Updated 01/17/24 @ 07:37 by Kaila William MD) Anxiety Depression HLD (hyperlipidemia) HTN (hypertension) Left wrist fracture Obesity Pre-diabetes Thyroid nodule Vitamin D deficiency Surgical History Surgical History (Updated 01/17/24 @ 07:37 by Kaila William MD) History of x3 History of lumbar discectomy History of thyroid surgery excisional biopsy Status post laparoscopic cholecystectomy Status post tonsillectomy and adenoidectomy Status post unilateral salpingo-oophorectomy right and left salpingectomy Family History Family History Father Carcinoma of colon, Onset Age: 55 Social History Social History Smoking status: Never smoker Second hand tobacco smoke exposure: No Alcohol intake: never Substance use: never Substance use type: does not use Do You Feel Safe in your Home?: Yes Lack of Transportation: No Lack of Food: Sometimes True Current Housing: I Have Housing Concerned About Future Housing: YES Difficulty Paying Gas/Electric Bills: No Difficulty Paying for Meds: No Currently Unemployed: No Education: Associate Degree Difficulty w/ Childcare or Family Care: No Living arrangements: with family Gender identity (if verbalized by the patient): Female Spiritual care concerns: No Agree to blood products: Yes Meds Home Medications and Allergies Home Medications Medication Instructions Recorded Confirmed Type cholecalciferol (vitamin D3) 1,250 50,000 unit PO 2XW 07/16/19 01/10/24 History mcg (50,000 unit) tablet buspirone 10 mg tablet 15 mg PO BID 08/03/22 01/10/24 History metoprolol succinate 50 mg See Rx Instructions .Route 02/01/23 01/10/24 Rx tablet,extended release 24 hr .COMPLEX #90 tabs amlodipine 10 mg tablet See Rx Instructions .Route 06/07/23 01/10/24 Rx .COMPLEX #90 tabs dapagliflozin propanediol 10 mg 10 mg PO DAILY 07/23/23 01/10/24 History tablet (Farxiga) fenofibrate 160 mg tablet See Rx Instructions .Route 09/08/23 01/10/24 Rx .COMPLEX #90 tabs levothyroxine 137 mcg tablet 137 mcg PO DAILY #90 tabs 10/25/23 01/10/24 Rx atorvastatin 80 mg tablet See Rx Instructions .Route 10/26/23 01/10/24 Rx .COMPLEX #90 tabs losartan 100 See Rx Instructions .Route 12/01/23 01/10/24 Rx mg-hydrochlorothiazide 12.5 mg .COMPLEX #90 tabs tablet dulaglutide 1.5 mg/0.5 mL See Rx Instructions .Route 01/10/24 01/10/24 Rx subcutaneous pen [facility] .[facility] loratadine 10 mg tablet (Claritin) 10 mg PO DAILY 01/10/24 01/10/24 History omeprazole magnesium 20 mg 20 mg PO DAILY 01/10/24 01/10/24 History tablet,delayed release (Prilosec OTC) alprazolam 0.5 mg tablet 0.5 mg PO BID PRN anxiety #30 tabs 01/14/24 Rx Allergies Allergy/AdvReac Type Severity Reaction Status Date / Time No Known Allergies Allergy Verified 01/10/24 15:25 Exam Const: General: healthy appearing and alert Orientation/consciousness: patient oriented x3 Resp: Effort & Inspection: normal respiratory effort : External Female Exam: normal external appearance Speculum Exam - Vagina: normal appearance of the v
[2024-01-17 09:12] VITALS: BP 140/86; PULSE 84; RESP 18; TEMP 36.1; O2SAT 100
[2024-01-17] MEDS: ACETAMINOPHEN 500 MG TABLET 1000 MG PO (09:14)
[2024-01-17] MEDS: LACTATED RINGERS 1,000 ML 30 ML IV CONT (09:15)
[2024-01-17 09:23] LABS: Glucose Point of Care 111 mg/dl (65-105)
--- NOTE | 2024-01-17 09:39 | WPDANESEPPF ---
Anes - Initial Pre Proc Eval Procedure: Operation Date: 01/17/24 10:45 Proposed Procedures p Hysteroscopy Dilation and Curettage - Kaila William MD Date/Time: 01/17/24 09:39 Surgeon: Kaila William MD Pre Op Diagnosis: abnormal uterine bleeding Patient Data Age: 38 Gender: F Height: 1.8 m Weight: 114.2 kg Last Vital Signs Temp 97.0 F L 01/17/24 09:12 Pulse 84 01/17/24 09:12 Resp 18 01/17/24 09:12 BP 140/86 01/17/24 09:12 Pulse Ox 100 01/17/24 09:12 O2 Del Method Room Air 01/17/24 09:12 Allergies Allergy/AdvReac Type Severity Reaction Status Date / Time No Known Allergies Allergy Verified 01/17/24 09:08 Home Medications Medication Instructions Recorded Confirmed Type cholecalciferol (vitamin D3) 1,250 50,000 unit PO 2XW 07/16/19 01/17/24 History mcg (50,000 unit) tablet buspirone 10 mg tablet 15 mg PO BID 08/03/22 01/17/24 History metoprolol succinate 50 mg See Rx Instructions .Route 02/01/23 01/17/24 Rx tablet,extended release 24 hr .COMPLEX #90 tabs amlodipine 10 mg tablet See Rx Instructions .Route 06/07/23 01/17/24 Rx .COMPLEX #90 tabs dapagliflozin propanediol 10 mg 10 mg PO DAILY 07/23/23 01/17/24 History tablet (Farxiga) fenofibrate 160 mg tablet See Rx Instructions .Route 09/08/23 01/17/24 Rx .COMPLEX #90 tabs levothyroxine 137 mcg tablet 137 mcg PO DAILY #90 tabs 10/25/23 01/17/24 Rx atorvastatin 80 mg tablet See Rx Instructions .Route 10/26/23 01/17/24 Rx .COMPLEX #90 tabs losartan 100 See Rx Instructions .Route 12/01/23 01/17/24 Rx mg-hydrochlorothiazide 12.5 mg .COMPLEX #90 tabs tablet dulaglutide 1.5 mg/0.5 mL See Rx Instructions .Route 01/10/24 01/17/24 Rx subcutaneous pen injector .COMPLEX #2 mL (Trulicity) loratadine 10 mg tablet (Claritin) 10 mg PO DAILY 01/10/24 01/17/24 History omeprazole magnesium 20 mg 20 mg PO DAILY 01/10/24 01/17/24 History tablet,delayed release (Prilosec OTC) alprazolam 0.5 mg tablet 0.5 mg PO BID PRN anxiety #30 tabs 01/14/24 01/17/24 Rx Laboratory Tests 01/17/24 09:22 POC Capillary Glucose 111 H mg/dl (65-105) Patient hx anesthesia problems: none Family hx anesthesia problems: none Results Review: All pre-operative results and documents have been reviewed as part of the pre-operative evaluation. [facility], LAT[facility] Past Medical History Medical History Anxiety Depression HLD (hyperlipidemia) HTN (hypertension) Left wrist fracture Obesity Pre-diabetes Thyroid nodule Vitamin D deficiency Surgical History Surgical History History of x3 History of lumbar discectomy History of thyroid surgery excisional biopsy Status post laparoscopic cholecystectomy Status post tonsillectomy and adenoidectomy Status post unilateral salpingo-oophorectomy right and left salpingectomy Family History Family History Father Carcinoma of colon, Onset Age: 55 Social History Social History Smoking status: Never smoker Second hand tobacco smoke exposure: No Alcohol intake: never Substance use: never Substance use type: does not use Do You Feel Safe in your Home?: Yes Lack of Transportation: No Lack of Food: Sometimes True Current Housing: I Have Housing Concerned About Future Housing: YES Difficulty Paying Gas/Electric Bills: No Difficulty Paying for Meds: No Currently Unemployed: No Education: Associate Degree Difficulty w/ Childcare or Family Care: No Living arrangements: with family Gender identity (if verbalized by the patient): Female Spiritual care concerns: No Agree to blood products: Yes Anes - Eval Final PreProcedure Day of Procedure 01/17/24 09:39 Patient weight: obes
[2024-01-17] MEDS: KETOROLAC 15 MG/ML VIAL (*BKC) IV PUSH (10:01)
[2024-01-17 10:35] VITALS: BP 117/72; PULSE 82; RESP 16; O2SAT 96
--- NOTE | 2024-01-17 10:36 | P.OP_ITS ---
Procedure Note - Detailed Date of Procedure 01/17/24 Pre-op Diagnosis abnormal uterine bleeding Post-op Diagnosis Same Procedure Performed D&C hysteroscopy Surgeon Kaila William MD Anesthesia MAC Findings uterus sounds to 10cm and appears secretory versus polyp like on the anterior fundus Description of Procedure The patient is taken to the operating where placed under anesthesia in the dorsal lithotomy position. She was prepped and draped in the usual sterile fashion. [place] speculum was placed in the vagina and the cervix grasped on the anterior lip with a tenaculum. Uterus is sounded to 10cm. The diagnostic hysteroscope was placed with the above-stated findings. The small Aveta resection device is placed and under direct visualization the polyp like areas anteriorly are resected under direct visualization. The hysteroscope was then removed and the sharp OO curette is used to curette the endometrium until a good uterine cry was noted in all areas. All instruments are removed. Sponge, needle, and instrument counts are correct per the OR staff. The patient was awakened from anesthesia and taken to recovery in stable condition. Estimated Blood Loss 5 Drains No Packing No Pathology Yes ( Endometrial shavings and curettings) Complications No immediate complications Condition Stable Disposition PACU
[2024-01-17 10:45] VITALS: BP 115/67; PULSE 81; RESP 15; O2SAT 96
[2024-01-17 10:48] LABS: Glucose Point of Care 115 mg/dl (65-105)
[2024-01-17 11:13] VITALS: BP 124/73; PULSE 74; RESP 16; O2SAT 100
[2024-01-17] MEDS: oxyCODONE HCL (*CRX) 5 MG TAB IR PO (11:24)
[2024-01-17 11:33] VITALS: BP 132/72; PULSE 68; RESP 16; O2SAT 98
--- NOTE | 2024-01-17 11:39 | SUR.PHASEII ---
Pt is awaiting ride from mother to discharge home - Carol called, on her way to chart picker.
== END 2024-01-17 11:50 | disposition home or self-care (01) ==
PROVIDERS: PCP Emergency Medicine; Visit Provider Obstetrics & Gynecology Gynecology
PROC: 0U5B8ZZ Destruction of Endometrium, Via Natural or Artificial Opening Endoscopic (ICD-10-PCS; CPT 58563; principal; 2024-01-17 10:45)
DX: N92.0 Excessive and frequent menstruation with regular cycle (principal); N84.0 Polyp of corpus uteri; I10 Essential (primary) hypertension; E78.5 Hyperlipidemia, unspecified; F41.9 Anxiety disorder, unspecified; F32.A Depression, unspecified; R73.03 Prediabetes; E55.9 Vitamin D deficiency, unspecified; E66.9 Obesity, unspecified; Z68.35 Body mass index [BMI] 35.0-35.9, adult; Z79.85 Long-term (current) use of injectable non-insulin antidiabetic drugs; Z98.890 Other specified postprocedural states; Z98.1 Arthrodesis status; Z90.49 Acquired absence of other specified parts of digestive tract; Z80.0 Family history of malignant neoplasm of digestive organs
CPT/HCPCS: 58558; 82948; 88305; A9270; J1100; J1885; J2250; J2405; J2704; J3010; J7120

== ENCOUNTER 2025-05-08 12:34 | Emergency (ER) | payer SELFPAY ==
--- NOTE | ~2025-05-08 | XR_ITS ---
EXAMINATION: XR chest 1V portable COMPARISON: No comparisons available. HISTORY: Heart palpitations FINDINGS: The lungs are clear, no effusion. No pneumothorax. Heart is normal size. Mediastinal and hilar contours are within normal limits. Bony thorax no acute abnormality. Miscellaneous: None Impression: No acute cardiopulmonary abnormality. Reviewed, dictated and finalized at location P. E CLERK Impression: No acute cardiopulmonary abnormality.
[2025-05-08 12:37] VITALS: BP 166/99; PULSE 107; RESP 16; TEMP 36.6; O2SAT 99
--- NOTE | 2025-05-08 13:00 | ECG_ITS ---
Test Date: 2025-05-08 13:15:18 Measurements Intervals [place] Rate: 108 P: 51 [place]: 159 QRS: 40 QRSD: 88 T: 91 QT: 308 QTc: 414 Interpretive Statements SINUS TACHYCARDIA NONSPECIFIC ST & T-WAVE ABNORMALITY ABNORMAL RHYTHM ECG No previous ECG available for comparison Electronically Signed On 05-08-2025 17:59:26 [employer]ER by Dutch Murray M.D.
--- NOTE | 2025-05-08 13:21 | ED.GENADULT ---
HPI - General Adult General Chief complaint: Anxiety Stated complaint: palpatations Time Seen by Provider: 05/08/25 12:59 History of Present Illness HPI narrative: 39-year-old female presenting to the emergency department for evaluation for increased anxiety, nausea hand rapid heart rate at work. Patient felt the stomach burning and rapid heart rate started before the anxiety. Patient felt her anxiety was secondary to the onset of the symptoms. Patient does report a history of anxiety. Patient does also have history of thyroid issues. Patient states that she has been taking her thyroid medication but her thyroid function has not been checked recently. Patient states she has had prior issues with uncontrolled thyroid and it did cause these symptoms. Patient denies any recent illness. Patient denies any pain with urination. Patient denies any nausea vomiting. Patient reports appropriate p.o. intake. Patient denies any excessive caffeine intake. Patient does have a anxious affect at time of evaluation. Related Data Home Medications ?Medication ?Instructions ?Recorded ?Confirmed ?Last Taken ?Type cholecalciferol (vitamin D3) 1,250 50,000 unit PO 2XW 07/16/19 01/17/24 08/08/23 History mcg (50,000 unit) tablet buspirone 10 mg tablet 15 mg PO BID 08/03/22 01/17/24 08/08/23 History loratadine 10 mg tablet (Claritin) 10 mg PO DAILY 01/10/24 01/17/24 Unknown History omeprazole magnesium 20 mg 20 mg PO DAILY 01/10/24 01/17/24 Unknown History tablet,delayed release (Prilosec OTC) Allergies Allergy/AdvReac Type Severity Reaction Status Date / Time No Known Allergies Allergy Verified 07/31/24 11:24 Review of Systems Review of Systems: All systems reviewed & are unremarkable except as noted in HPI and below PMFSH Past Medical History Medical History Left wrist fracture Thyroid nodule Vitamin D deficiency HTN (hypertension) Anxiety Obesity Depression HLD (hyperlipidemia) Pre-diabetes Surgical History Surgical History History of lumbar discectomy History of thyroid surgery excisional biopsy Status post unilateral salpingo-oophorectomy right and left salpingectomy Status post laparoscopic cholecystectomy Status post tonsillectomy and adenoidectomy History of x3 History of thyroidectomy, subtotal H/O thyroidectomy Family History Family History Father Carcinoma of colon, Onset Age: 55 Social History Social History Second hand tobacco smoke exposure: No Alcohol intake: never Substance use: never Substance use type: does not use Do You Feel Safe in your Home?: Yes Lack of Transportation: No Lack of Food: Sometimes True Current Housing: I Have Housing Concerned About Future Housing: YES Difficulty Paying Gas/Electric Bills: No Difficulty Paying for Meds: No Currently Unemployed: No Education: Associate Degree Difficulty w/ Childcare or Family Care: No Living arrangements: with family Gender identity (if verbalized by the patient): Female Spiritual care concerns: No Agree to blood products: Yes Exam Narrative: APPEARANCE: Well appearing, no pain, no distress, well-nourished. HEAD: normocephalic, atraumatic. EYES: PERRLA/EOMI, conjunctivae clear. NOSE: Normal no drainage EARS:TMS clear with good light reflex. THROAT: Pharynx clear, no exudate. NECK: Supple. No adenopathy, no masses. RESPIRATORY: Airway patent, respirations nonlabored. Clear to auscultation bilaterally, no rales, rhonchi, wheezing. CARDIOVASCULAR: Sinus tachycardia ABDOMINAL: Soft, nontender, nondistended, normal bowel sounds MUSCULOSKELETAL: Moves all extremities. Strength/ROM intact, No edema, No calf tenderness. NEURO: Alert. Cranial nerves II through XII intact. Grossly intact SKIN: Warm, dry. Normal Color Course Vital Signs Vital signs: Vital Signs Temperature 97.9 F 05/08/25 12:37 Pulse Rate 107 H 05/08/25 12:37 Respiratory Rate 16 05/08/25 12:37 Blood Pressure 166/99 H 05/08/25 12:37 Pulse Oximetry 99 05/08/25 12:37 Oxygen Delivery Room Air 05/08/25 12:37 Temperature 97.9 F 05/08/25 12:37 Pulse Rate 99 05/08/25 16:31 Respiratory Rate 16 05/08/25 16:31 Blood Pressure 138/78 05/08/25 16:31 Pulse Oximetry 100 05/08/25 16:31 Oxygen Delivery Room Air 05/08/25 12:37 Medical Decision Making MDM Narrative Medical decision making narrative: 39-year-old female present to the emergency department for evaluation for gastric burning and heart palpitations with associated anxiety. Patient is currently afebrile with no leukocytosis and hemoglobin of 10.2. Patient has no recent baseline labs on file. Patient's INR is 1.0. Patient has no abnormalities on her CMP including a normal Mag. Chest x-ray showed no acute cardiopulmonary abnormality. EKG shows normal sinus rhythm. Urine is negative for infection. On re-evaluation patient states she does feel improved. Differential Diagnosis Differential Diagnosis: Anxiety, palpitations, AFib, SVT, dehydration, pneumonia Vital Signs Vital Signs: Vital Signs Temperature 97.9 F 05/08/25 12:37 Pulse Rate 107 H 05/08/25 12:37 Respiratory Rate 16 05/08/25 12:37 Blood Pressure 166/99 H 05/08/25 12:37 Pulse Oximetry 99 05/08/25 12:37 Oxygen Delivery Room Air 05/08/25 12:37 Temperature 97.9 F 05/08/25 12:37 Pulse Rate 99 05/08/25 16:31 Respiratory Rate 16 05/08/25 16:31 Blood Pressure 138/78 05/08/25 16:31 Pulse Oximetry 100 05/08/25 16:31 Oxygen Delivery Room Air 05/08/25 12:37 Lab Data Lab results reviewed: Yes I reviewed the patient's lab results. 05/08/25 14:13 05/08/25 14:13 Labs: Lab Results 05/08/25 05/08/25 05/08/25 Range/Units 13:01 14:13 14:13 WBC 8.0 (4.5-10.0) K/mm3 RBC 4.22 (4.2-5.4) M/mm3 Hgb 10.2 L (12.0-15.0) g/dL Hct 33.2 L (37.0-47.0) % MCV 78.7 L (80-100) fl MCH 24.2 L (26-34) pg MCHC 30.7 L (32-36) g/dl RDW 15.1 H (11.5-14.5) % Plt Count 281 (150-375) k/mm3 MPV 9.9 (7.4-10.4) fl Immature Gran % (Auto) 0.4 (0-0.5) % Neut % (Auto) 71.6 (45.5-73.1) % Lymph % (Auto) 20.4 (18.3-44.2) % Bartholomew % (Auto) 5.0 (2.6-8.5) % Eos % (Auto) 2.1 (0-4.4) % Baso % (Auto) 0.5 (0.2-1.2) % Lymph # (Auto) 1.63 (0.9-3.2) K/mm3 Bartholomew # (Auto) 0.4 (0.1-0.6) K/mm3 Eos # (Auto) 0.2 (0-0.3) K/mm3 Baso # (Auto) 0.0 (0.0-0.1) K/mm3 Abs Immat Gran (auto) 0.03 (0.00-0.031) K/mm3 Absolute Neuts (auto) 5.7 (1.3-6.7) K/mm3 Absolute Nucleated RBC 0.000 (0.0-0.012) K/mm3 Nucleated RBC % 0.0 (0.0-0.2) % PT 13.1 (11.1-14.7) Seconds INR 1.0 APTT 25.4 (22.3-36.8) Seconds Sodium 139 139 (137-145) mmol/L Potassium 4.1 (3.4-5.0) mmol/L Chloride (98-107) mmol/L Carbon Dioxide (22-30) mmol/L Anion Gap (4-12) mmol/L BUN (7-17) mg/dL Creatinine (0.7-1.0) mg/dL Estim Creat Clear Calc Estimated GFR (59 - ) Glucose (65-110) mg/dL Calcium (8.4-10.2) mg/dL Magnesium (1.6-2.3) mg/dL Total Bilirubin (0.2-1.3) mg/dL AST (14-36) U/L ALT (6-35) U/L Alkaline Phosphatase (38-126) U/L Total Protein (6.3-8.2) g/dL Albumin (3.5-5.1) g/dL TSH (Reflex) (0.465-4.68) uIU/mL Free T4 (0.78-2.19) ng/dL Total T3 (0.82-1.58) NG/ML Urine Color (Yellow) Urine Appearance (Clear) Urine pH (5.0-9.0) Ur Specific [place] (1.001-1.035) Urine Protein (Negative) mg/dL Urine Glucose (UA) (Negative) mg/dL Urine Ketones (Negative) mg/dL Ur Blood (Man) (Negative) Urine Nitrate (Negative) Urine Bilirubin (Negative) Urine Urobilinogen (<2.0) mg/dL Leukocyte Esterase Rfl (Negative) YAA/UL POC Urine HCG, Qual Negative (Negative) 05/08/25 05/08/25 05/08/25 Range/Units 14:13 14:13 14:13 WBC (4.5-10.0) K/mm3 RBC (4.2-5.4) M/mm3 Hgb (12.0-15.0) g/dL Hct (37.0-47.0) % MCV (80-100) fl MCH (26-34) pg MCHC (32-36) g/dl RDW (11.5-14.5) % Plt Count (150-375) k/mm3 MPV (7.4-10.4) fl Immature Gran % (Auto) (0-0.5) % Neut % (Auto) (45.5-73.1) % Lymph % (Auto) (18.3-44.2) % Bartholomew % (Auto) (2.6-8.5) % Eos % (Auto) (0-4.4) % Baso % (Auto) (0.2-1.2) % Lymph # (Auto) (0.9-3.2) K/mm3 Bartholomew # (Auto) (0.1-0.6) K/mm3 Eos # (Auto) (0-0.3) K/mm3 Baso # (Auto) (0.0-0.1) K/mm3 Abs Immat Gran (auto) (0.00-0.031) K/mm3 Absolute Neuts (auto) (1.3-6.7) K/mm3 Absolute Nucleated RBC (0.0-0.012) K/mm3 Nucleated RBC % (0.0-0.2) % PT (11.1-14.7) Seconds INR APTT (22.3-36.8) Seconds Sodium (137-145) mmol/L Potassium 3.8 (3.4-5.0) mmol/L Chloride 106 106 (98-107) mmol/L Carbon Dioxide 24 26 (22-30) mmol/L Anion Gap 9 (4-12) mmol/L BUN (7-17) mg/dL Creatinine (0.7-1.0) mg/dL Estim Creat Clear Calc Estimated GFR (59 - ) Glucose (65-110) mg/dL Calcium (8.4-10.2) mg/dL Magnesium (1.6-2.3) mg/dL Total Bilirubin (0.2-1.3) mg/dL AST (14-36) U/L ALT (6-35) U/L Alkaline Phosphatase (38-126) U/L Total Protein (6.3-8.2) g/dL Albumin (3.5-5.1) g/dL TSH (Reflex) (0.465-4.68) uIU/mL Free T4 (0.78-2.19) ng/dL Total T3 (0.82-1.58) NG/ML Urine Color (Yellow) Urine Appearance (Clear) Urine pH (5.0-9.0) Ur Specific [place] (1.001-1.035) Urine Protein (Negative) mg/dL Urine Glucose (UA) (Negative) mg/dL Urine Ketones (Negative) mg/dL Ur Blood (Man) (Negative) Urine Nitrate (Negative) Urine Bilirubin (Negative) Urine Urobilinogen (<2.0) mg/dL Leukocyte Esterase Rfl (Negative) YAA/UL POC Urine HCG, Qual (Negative) 05/08/25 05/08/25 05/08/25 Range/Units 14:13 14:13 14:13 WBC (4.5-10.0) K/mm3 RBC (4.2-5.4) M/mm3 Hgb (12.0-15.0) g/dL Hct (37.0-47.0) % MCV (80-100) fl MCH (26-34) pg MCHC (32-36) g/dl RDW (11.5-14.5) % Plt Count (150-375) k/mm3 MPV (7.4-10.4) fl Immature Gran % (Auto) (0-0.5) % Neut % (Auto) (45.5-73.1) % Lymph % (Auto) (18.3-44.2) % Bartholomew % (Auto) (2.6-8.5) % Eos % (Auto) (0-4.4) % Baso % (Auto) (0.2-1.2) % Lymph # (Auto) (0.9-3.2) K/mm3 [place]omew # (Auto) (0.1-0.6) K/mm3 Eos # (Auto) (0-0.3) K/mm3 Baso # (Auto) (0.0-0.1) K/mm3 Abs Immat Gran (auto) (0.00-0.031) K/mm3 Absolute Neuts (auto) (1.3-6.7) K/mm3 Absolute Nucleated RBC (0.0-0.012) K/mm3 Nucleated RBC % (0.0-0.2) % PT (11.1-14.7) Seconds INR APTT (22.3-36.8) Seconds Sodium (137-145) mmol/L Potassium (3.4-5.0) mmol/L Chloride (98-107) mmol/L Carbon Dioxide (22-30) mmol/L Anion Gap 7 (4-12) mmol/L BUN 17 17 (7-17) mg/dL Creatinine 0.85 0.87 (0.7-1.0) mg/dL Estim Creat Clear Calc Not Reportable Estimated GFR (59 - ) Glucose (65-110) mg/dL Calcium (8.4-10.2) mg/dL Magnesium (1.6-2.3) mg/dL Total Bilirubin (0.2-1.3) mg/dL AST (14-36) U/L ALT (6-35) U/L Alkaline Phosphatase (38-126) U/L Total Protein (6.3-8.2) g/dL Albumin (3.5-5.1) g/dL TSH (Reflex) (0.465-4.68) uIU/mL Free T4 (0.78-2.19) ng/dL Total T3 (0.82-1.58) NG/ML Urine Color (Yellow) Urine Appearance (Clear) Urine pH (5.0-9.0) Ur Specific [place] (1.001-1.035) Urine Protein (Negative) mg/dL Urine Glucose (UA) (Negative) mg/dL Urine Ketones (Negative) mg/dL Ur Blood (Man) (Negative) Urine Nitrate (Negative) Urine Bilirubin (Negative) Urine Urobilinogen (<2.0) mg/dL Leukocyte Esterase Rfl (Negative) YAA/UL POC Urine HCG, Qual (Negative) 05/08/25 05/08/25 05/08/25 Range/Units 14:13 14:13 14:13 WBC (4.5-10.0) K/mm3 RBC (4.2-5.4) M/mm3 Hgb (12.0-15.0) g/dL Hct (37.0-47.0) % MCV (80-100) fl MCH (26-34) pg MCHC (32-36) g/dl RDW (11.5-14.5) % Plt Count (150-375) k/mm3 MPV (7.4-10.4) fl Immature Gran % (Auto) (0-0.5) % Neut % (Auto) (45.5-73.1) % Lymph % (Auto) (18.3-44.2) % Bartholomew % (Auto) (2.6-8.5) % Eos % (Auto) (0-4.4) % Baso % (Auto) (0.2-1.2) % Lymph # (Auto) (0.9-3.2) K/mm3 [place]omew # (Auto) (0.1-0.6) K/mm3 Eos # (Auto) (0-0.3) K/mm3 Baso # (Auto) (0.0-0.1) K/mm3 Abs Immat Gran (auto) (0.00-0.031) K/mm3 Absolute Neuts (auto) (1.3-6.7) K/mm3 Absolute Nucleated RBC (0.0-0.012) K/mm3 Nucleated RBC % (0.0-0.2) % PT (11.1-14.7) Seconds INR APTT (22.3-36.8) Seconds Sodium (137-145) mmol/L Potassium (3.4-5.0) mmol/L Chloride (98-107) mmol/L Carbon Dioxide (22-30) mmol/L Anion Gap (4-12) mmol/L BUN (7-17) mg/dL Creatinine (0.7-1.0) mg/dL Estim Creat Clear Calc Not Reportable Estimated GFR > 60 > 60 (59 - ) Glucose 90 85 (65-110) mg/dL Calcium 9.5 (8.4-10.2) mg/dL Magnesium (1.6-2.3) mg/dL Total Bilirubin (0.2-1.3) mg/dL AST (14-36) U/L ALT (6-35) U/L Alkaline Phosphatase (38-126) U/L Total Protein (6.3-8.2) g/dL Albumin (3.5-5.1) g/dL TSH (Reflex) (0.465-4.68) uIU/mL Free T4 (0.78-2.19) ng/dL Total T3 (0.82-1.58) NG/ML Urine Color (Yellow) Urine Appearance (Clear) Urine pH (5.0-9.0) Ur Specific [place] (1.001-1.035) Urine Protein (Negative) mg/dL Urine Glucose (UA) (Negative) mg/dL Urine Ketones (Negative) mg/dL Ur Blood (Man) (Negative) Urine Nitrate (Negative) Urine Bilirubin (Negative) Urine Urobilinogen (<2.0) mg/dL Leukocyte Esterase Rfl (Negative) YAA/UL POC Urine HCG, Qual (Negative) 05/08/25 05/08/25 05/08/25 Range/Units 14:13 14:13 14:13 WBC (4.5-10.0) K/mm3 RBC (4.2-5.4) M/mm3 Hgb (12.0-15.0) g/dL Hct (37.0-47.0) % MCV (80-100) fl MCH (26-34) pg MCHC (32-36) g/dl RDW (11.5-14.5) % Plt Count (150-375) k/mm3 MPV (7.4-10.4) fl Immature Gran % (Auto) (0-0.5) % Neut % (Auto) (45.5-73.1) % Lymph % (Auto) (18.3-44.2) % Bartholomew % (Auto) (2.6-8.5) % Eos % (Auto) (0-4.4) % Baso % (Auto) (0.2-1.2) % Lymph # (Auto) (0.9-3.2) K/mm3 [place]omew # (Auto) (0.1-0.6) K/mm3 Eos # (Auto) (0-0.3) K/mm3 Baso # (Auto) (0.0-0.1) K/mm3 Abs Immat Gran (auto) (0.00-0.031) K/mm3 Absolute Neuts (auto) (1.3-6.7) K/mm3 Absolute Nucleated RBC (0.0-0.012) K/mm3 Nucleated RBC % (0.0-0.2) % PT (11.1-14.7) Seconds INR APTT (22.3-36.8) Seconds Sodium (137-145) mmol/L Potassium (3.4-5.0) mmol/L Chloride (98-107) mmol/L Carbon Dioxide (22-30) mmol/L Anion Gap (4-12) mmol/L BUN (7-17) mg/dL Creatinine (0.7-1.0) mg/dL Estim Creat Clear Calc Estimated GFR (59 - ) Glucose (65-110) mg/dL Calcium 9.2 (8.4-10.2) mg/dL Magnesium 1.9 (1.6-2.3) mg/dL Total Bilirubin 0.5 0.5 (0.2-1.3) mg/dL AST 20 22 (14-36) U/L ALT 17 (6-35) U/L Alkaline Phosphatase (38-126) U/L Total Protein (6.3-8.2) g/dL Albumin (3.5-5.1) g/dL TSH (Reflex) (0.465-4.68) uIU/mL Free T4 (0.78-2.19) ng/dL Total T3 (0.82-1.58) NG/ML Urine Color (Yellow) Urine Appearance (Clear) Urine pH (5.0-9.0) Ur Specific [place] (1.001-1.035) Urine Protein (Negative) mg/dL Urine Glucose (UA) (Negative) mg/dL Urine Ketones (Negative) mg/dL Ur Blood (Man) (Negative) Urine Nitrate (Negative) Urine Bilirubin (Negative) Urine Urobilinogen (<2.0) mg/dL Leukocyte Esterase Rfl (Negative) YAA/UL POC Urine HCG, Qual (Negative) 05/08/25 05/08/25 05/08/25 Range/Units 14:13 14:13 14:13 WBC (4.5-10.0) K/mm3 RBC (4.2-5.4) M/mm3 Hgb (12.0-15.0) g/dL Hct (37.0-47.0) % MCV (80-100) fl MCH (26-34) pg MCHC (32-36) g/dl RDW (11.5-14.5) % Plt Count (150-375) k/mm3 MPV (7.4-10.4) fl Immature Gran % (Auto) (0-0.5) % Neut % (Auto) (45.5-73.1) % Lymph % (Auto) (18.3-44.2) % Bartholomew % (Auto) (2.6-8.5) % Eos % (Auto) (0-4.4) % Baso % (Auto) (0.2-1.2) % Lymph # (Auto) (0.9-3.2) K/mm3 [place]omew # (Auto) (0.1-0.6) K/mm3 Eos # (Auto) (0-0.3) K/mm3 Baso # (Auto) (0.0-0.1) K/mm3 Abs Immat Gran (auto) (0.00-0.031) K/mm3 Absolute Neuts (auto) (1.3-6.7) K/mm3 Absolute Nucleated RBC (0.0-0.012) K/mm3 Nucleated RBC % (0.0-0.2) % PT (11.1-14.7) Seconds INR APTT (22.3-36.8) Seconds Sodium (137-145) mmol/L Potassium (3.4-5.0) mmol/L Chloride (98-107) mmol/L Carbon Dioxide (22-30) mmol/L Anion Gap (4-12) mmol/L BUN (7-17) mg/dL Creatinine (0.7-1.0) mg/dL Estim Creat Clear Calc Estimated GFR (59 - ) Glucose (65-110) mg/dL Calcium (8.4-10.2) mg/dL Magnesium (1.6-2.3) mg/dL Total Bilirubin (0.2-1.3) mg/dL AST (14-36) U/L ALT 17 (6-35) U/L Alkaline Phosphatase 44 46 (38-126) U/L Total Protein 7.3 7.6 (6.3-8.2) g/dL Albumin 4.4 (3.5-5.1) g/dL TSH (Reflex) (0.465-4.68) uIU/mL Free T4 (0.78-2.19) ng/dL Total T3 (0.82-1.58) NG/ML Urine Color (Yellow) Urine Appearance (Clear) Urine pH (5.0-9.0) Ur Specific [place] (1.001-1.035) Urine Protein (Negative) mg/dL Urine Glucose (UA) (Negative) mg/dL Urine Ketones (Negative) mg/dL Ur Blood (Man) (Negative) Urine Nitrate (Negative) Urine Bilirubin (Negative) Urine Urobilinogen (<2.0) mg/dL Leukocyte Esterase Rfl (Negative) YAA/UL POC Urine HCG, Qual (Negative) 05/08/25 Range/Units 14:13 WBC (4.5-10.0) K/mm3 RBC (4.2-5.4) M/mm3 Hgb (12.0-15.0) g/dL Hct (37.0-47.0) % MCV (80-100) fl MCH (26-34) pg MCHC (32-36) g/dl RDW (11.5-14.5) % Plt Count (150-375) k/mm3 MPV (7.4-10.4) fl Immature Gran % (Auto) (0-0.5) % Neut % (Auto) (45.5-73.1) % Lymph % (Auto) (18.3-44.2) % Bartholomew % (Auto) (2.6-8.5) % Eos % (Auto) (0-4.4) % Baso % (Auto) (0.2-1.2) % Lymph # (Auto) (0.9-3.2) K/mm3 [place] # (Auto) (0.1-0.6) K/mm3 Eos # (Auto) (0-0.3) K/mm3 Baso # (Auto) (0.0-0.1) K/mm3 Abs Immat Gran (auto) (0.00-0.031) K/mm3 Absolute Neuts (auto) (1.3-6.7) K/mm3 Absolute Nucleated RBC (0.0-0.012) K/mm3 Nucleated RBC % (0.0-0.2) % PT (11.1-14.7) Seconds INR APTT (22.3-36.8) Seconds Sodium (137-145) mmol/L Potassium (3.4-5.0) mmol/L Chloride (98-107) mmol/L Carbon Dioxide (22-30) mmol/L Anion Gap (4-12) mmol/L BUN (7-17) mg/dL Creatinine (0.7-1.0) mg/dL Estim Creat Clear Calc Estimated GFR (59 - ) Glucose (65-110) mg/dL Calcium (8.4-10.2) mg/dL Magnesium (1.6-2.3) mg/dL Total Bilirubin (0.2-1.3) mg/dL AST (14-36) U/L ALT (6-35) U/L Alkaline Phosphatase (38-126) U/L Total Protein (6.3-8.2) g/dL Albumin 4.5 (3.5-5.1) g/dL TSH (Reflex) 0.429 L (0.465-4.68) uIU/mL Free T4 1.22 (0.78-2.19) ng/dL Total T3 1.00 (0.82-1.58) NG/ML Urine Color Yellow (Yellow) Urine Appearance Clear (Clear) Urine pH 6.0 (5.0-9.0) Ur Specific [place] 1.008 (1.001-1.035) Urine Protein Negative (Negative) mg/dL Urine Glucose (UA) Negative (Negative) mg/dL Urine Ketones Negative (Negative) mg/dL Ur Blood (Man) Negative (Negative) Urine Nitrate Negative (Negative) Urine Bilirubin Negative (Negative) Urine Urobilinogen 0.2 (<2.0) mg/dL Leukocyte Esterase Rfl Negative (Negative) YAA/UL POC Urine HCG, Qual (Negative) Imaging Data My impression: Chest x-ray: No acute cardiopulmonary abnormality Radiologist's impression: Impressions Chest X-Ray 05/08/25 15:44 Impression: No acute cardiopulmonary abnormality. ECG Data EKG #1: Attestation: I personally reviewed and interpreted this ECG as follows: EKG Interpretation: tachycardia, sinus rhythm, no ectopy, non-specific ST changes, normal QRS and NL axis Discharge Plan Discharge Clinical Impression: Heart palpitations, Anxiety Patient Disposition: Home Condition: Stable Instructions: Antibiotic Form Additional Instructions: Have close follow-up with your primary care physician. If you have any worsening symptoms then please call or return to the emergency department. Patient Language: Guamanian Prescriptions: No Action cholecalciferol (vitamin D3) 1,250 mcg (50,000 unit) tablet 50,000 unit PO 2XW Patient Comments: patient takes on Tuesdays and Fridays Rx Instructions: take 1 tablet by oral route 2 times every week buspirone 10 mg tablet 15 mg PO BID levothyroxine 137 mcg tablet 137 mcg PO DAILY Qty: 90 2RF Trulicity 3 mg/0.5 mL pen injector 3 mg subcut WEEKLY Qty: 2 2RF omeprazole magnesium [Prilosec OTC] 20 mg Tablet,Delayed Release (Dr/Ec) 20 mg PO DAILY loratadine [Claritin] 10 mg Tablet 10 mg PO DAILY amlodipine 10 mg tablet See Rx Instructions .ROUTE .COMPLEX Qty: 90 2RF Dose Instruction: TAKE 1 TABLET BY MOUTH DAILY Rx Instructions: TAKE 1 TABLET BY MOUTH DAILY dapagliflozin propanediol [Farxiga] 10 mg tablet See Rx Instructions .ROUTE .COMPLEX Qty: 90 2RF Dose Instruction: TAKE 1 TABLET BY MOUTH DAILY Rx Instructions: TAKE 1 TABLET BY MOUTH DAILY metoprolol succinate 50 mg tablet extended release 24 hr See Rx Instructions .ROUTE .COMPLEX Qty: 90 2RF Dose Instruction: TAKE 1 TABLET BY MOUTH DAILY Rx Instructions: TAKE 1 TABLET BY MOUTH DAILY losartan-hydrochlorothiazide 100-12.5 mg tablet See Rx Instructions .ROUTE .COMPLEX Qty: 90 2RF Dose Instruction: TAKE 1 TABLET BY MOUTH DAILY Rx Instructions: TAKE 1 TABLET BY MOUTH DAILY atorvastatin 80 mg tablet See Rx Instructions .ROUTE .COMPLEX Qty: 90 2RF Dose Instruction: TAKE 1 TABLET BY MOUTH DAILY Rx Instructions: TAKE 1 TABLET BY MOUTH DAILY fenofibrate 160 mg tablet See Rx Instructions .ROUTE .COMPLEX Qty: 90 2RF Dose Instruction: TAKE 1 TABLET BY MOUTH DAILY Rx Instructions: TAKE 1 TABLET BY MOUTH DAILY alprazolam 0.5 mg tablet 0.5 mg PO BID PRN (Reason: anxiety) Qty: 60 1RF Follow-up/Referrals: Jace Porter MD [Primary Care Provider, Internal Medicine]
--- OUTSIDE RECORDS SUMMARY | 2025-05-08 13:31 | XMS_ITS | Clinical Summary ---
Author Organization [facility] Address [address] [facility] [place] [address] Care Team Providers Care Manager Global Name Role Phone Jace Porter MD Primary Care Provider [phone] Source Comments [facility],non-owned Affiliates and Associated Physician Practices is amultiple site organization consisting of ambulatory clinics and hospital sitesin [place], [place], [place] and [place]. This disclosure is being madepursuant to the Care Everywhere program and may not contain all information available regarding this patient. Last updated 18.[facility] [employer] Allergies No known active allergies Medications * Be aware that medications may not be up to date on this document. Alwaysverify current medications with the patient. acetaminophen- codeine (TYLENOL #3) 300-30 MG tablet Take 1 tablet by mouth every 6 hours as needed 2 Active amLODIPine (NORVASC) 10 MG tablet Take 10 mg by mouth once daily 2 Active busPIRone (BUSPAR) 7.5 MG tablet Take 7.5 mg by mouth 2 times daily 2 Active FARXIGA 10 MG tablet Take 10 mg by mouth once daily 2 Active dulaglutide (TRULICITY) 0.75 MG/0.5ML injection Trulicity 0.75 mg/0.5 mL subcutaneous pen injector ADMINISTER 0.75 MG UNDER THE SKIN EVERY WEEK WITH MEALS Active vitamin D, ergocalciferol , (DRISDOL) 1.25 MG (19836 UT) capsule TAKE 1 CAPSULE BY MOUTH 2 TIMES A WEEK 2 Active fenofibrate (LOFIBRA) 160 MG tablet fenofibrate 160 mg tablet TAKE 1 TABLET BY MOUTH EVERY DAY Active levothyroxine (SYNTHROID) 50 MCG tablet levothyroxine 50 mcg tablet TAKE 1 TABLET BY MOUTH EVERY DAY Active metoprolol succinate XL 24hr (TOPROL XL) 50 MG tablet Take 50 mg by mouth once daily 2 Active naproxen (NAPROSYN) 500 MG tablet naproxen 500 mg tablet TAKE 1 TABLET BY MOUTH TWICE DAILY NEEDED FOR PAIN Active atorvastatin (LIPITOR) 20 MG tablet atorvastatin 20 mg tablet TAKE 1 TABLET BY MOUTH EVERY DAY Active losartan-hydro CHLOROthiazide (HYZAAR) 100-12.5 MG tablet losartan 100 mg-hydrochlorothi azide 12.5 mg tablet TAKE 1 TABLET BY MOUTH DAILY Active ALPRAZolam (XANAX) 0.25 MG tablet Take 0.25 mg by mouth once daily as needed 2 Active Omeprazole Magnesium (PRILOSEC PO) Active oxyCODONE, immediate release, (ROXICODONE) 5 MG tablet Take 1 (one) tablet by mouth every 4 hours as needed for Pain 15 tablet 2 Active Additional Information Patient not taking.Reported on 12/23/2021 polyethylene glycol 3350 (MIRALAX) 17 GM/SCOOP powder Take 17 (seventeen) g by mouth once daily 289 g 2 Active Additional Information Patient not taking.Reported on 12/23/2021 ibuprofen (MOTRIN) 600 MG tablet Take 1 (one) tablet by mouth every 6 hours as needed for Pain 40 tablet 1 2 Active ondansetron, disintegrating , (ZOFRAN ODT) 4 MG tablet Take 1 (one) tablet by mouth every 6 hours as needed for Nausea/Vomiting Allow tablet to dissolve on the tongue 10 tablet 2 Active Additional Information Patient not taking.Reported on 12/23/2021 acetaminophen (TYLENOL) 325 MG tablet Take 2 (two) tablets by mouth every 4 hours as needed for Fever or Pain Maximum allowable Acetaminophen amount = 4 Grams (4000 mg) / 24 hours. 50 tablet 2 Active Additional Information Patient not taking.Reported on 12/23/2021 metFORMIN ER 24hr (GLUCOPHAGE XR) 500 MG tablet 2 Active JANUVIA 50 MG tablet Take 50 mg by mouth once daily 2 Active Active Problems Problem Noted Date Diagnosed Date Closed nondisplaced fracture of scaphoid bone of left wrist 11/25/2017 Hydronephrosis of right kidney 11/19/2010 Supervision of high risk 11/05/2010 Gestational diabetes 11/05/2010 Overview (11/05/2010): NPH 24 units qHS Elevated blood pressure read ing without diagnosis of hypertension 11/05/2010 Overview (09/26/2016): May be chronic with superimposed PreE vs PreE Put on Procardia XL 60mg BID when 18 wks Added Labetalol 200mg BID when 22wks Baseline 24 hr urine 110 in Jun, 24hr urine 10/30/10 was 418 IMO Update 09/26/2016 Family History Medical History Relation Name Comments Cancer - Colon Father Cancer Maternal Grandfather Heart Failure Maternal Grandmother Hypercholesterolemia Mother Relation Name Status Comments Father Alive Maternal Grandfather Maternal Grandmother Mother Alive Social History Tobacco Use Types Packs/Day Years Used Date Smoking Tobacco: Never Smokeless Tobacco: Never Alcohol Use Standard Drinks/Week Comments No 0 (1 standard drink = 0.6 oz pur e alcohol) AUDIT-C Answer Date Recorded Q1: How often do you have a drink containing alcohol? Never 11/26/2021 Q2: How many drinks containi ng alcohol do you have on a typical day when you are drinking? Patient does not drink 2 Q3: How often do you have si x or more drinks on one occasion? Never 11/26/2021 Comments No Sex and Gender Information Value Date Recorded Sex Assigned at Not on file Legal Sex Female 10:01 AM [employer] Gender Identity Not on file Sexual Orientation Not on file Last Filed Vital Signs Vital Sign Reading Time Taken Comments Blood Pressure 134/78 12/23/2021 10:05 AM CDT Pulse 71 11/26/2021 3:28 PM CDT Temperature 36.9 C (98.5 F) 11/26/2021 1:49 PM CDT Respiratory Rate 20 11/26/2021 3:28 PM CDT Oxygen Saturation 95% 11/26/2021 3:28 PM CDT Inhaled Oxygen Concentration - - Weight 122.5 kg (270 lb) 12/23/2021 10:05 AM CDT Height 180.3 cm (5' 11) 12/23/2021 10:05 AM CDT Body Mass Index 37.66 12/23/2021 10:05 AM CDT Plan of Treatment Health Maintenance Due Date Last Done Comments HIV SCREENING 2001 HEPATITIS C SCREENING 09/01/2004 DTAP/TDAP/TD VACCINES (1 - Tdap) 2005 HEPATITIS B VACCINE (1 of 3 - 19+ 3-dose series) 2005 PAP SMEAR 09/07/2007 HPV VACCINE (1 - 3-dose SCDM series) 2013 DEPRESSION SCREENING 06/28/2024 COVID-19 VACCINE (1 - 2023-2 5 season) 2025 INFLUENZA VACCINE (#1) 2025 ZOSTER VACCINE (1 of 2) 2036 HIB VACCINE Aged Out No longer eligi ble based on patient's age to complete this topic MENINGOCOCCAL (Group B) VACC INE SHARED DECISION-MAKING Aged Out No longer eligibl e based on patient's age to complete this topic MENINGOCOCCAL GROUPS A/C/Y/W VACCINE Aged Out No longer eligible b ased on patient's age to complete this topic PNEUMOCOCCAL VACCINE Aged Out No long er eligible based on patient's age to complete this topic Insurance [facility] [place] [address] * Guarantor: LIBORIO MOREIRA Account Type Relation to Patient Date of Phone Billing Address Personal/Family [address] [place] [address] [facility] SELF PAY NO INSURANCE Member Subscriber Plan / Payer (Ef fective for All Dates) Name:Liborio Moreira Member ID:Not on file Relation to Subscriber:Not on file Name:LIBORIO MOREIRA Subscriber ID:Not on file Address: [address] [place] [address] Payer ID:Not on file Group ID:Not on file Type:Self Pay Address: [place], [place] * Guarantor: LIBORIO MOREIRA Account Type Relation to Patient Date of Phone Billing Address Personal/Family [address] [place] [address] [facility] SELF PAY NO INSURANCE Member Subscriber Plan / Payer (Ef fective for All Dates) Name:Liborio Moreira Member ID:Not on file Relation to Subscriber:Not on file Name:LIBORIO MOREIRA Subscriber ID:Not on file Address: [address] [place] [address] Payer ID:Not on file Group ID:Not on file Type:Self Pay Address: [place], [place] * Guarantor: LIBORIO MOREIRA Account Type Relation to Patient Date of Phone Billing Address Personal/Family [address] [place] [address] [facility] SELF PAY NO INSURANCE Member Subscriber Plan / Payer (Ef fective for All Dates) Name:Liborio Moreira Member ID:Not on file Relation to Subscriber:Not on file Name:LIBORIO MOREIRA Subscriber ID:Not on file Address: [address] [place] [address] Payer ID:Not on file Group ID:Not on file Type:Self Pay Address: [place], [place] Advance Directives * Full Code (Latest Code Status on File) Date Activated Date Inactivated Comments 11/05/2010 11:36 AM 11/08/2010 5:53 AM Care Teams Manager Global Relationship Specialty Start Date End Date Jace Porter MD [address] [place] [id number] PCP - General 11/08/21
[2025-05-08] MEDS: LACTATED RINGERS 1,000 ML 999 ML IV CONT (13:46)
[2025-05-08] MEDS: LORazepam (*CRX) 1 MG TABLET PO (13:47)
[2025-05-08 14:25] LABS: Add Urine Microscopic? NO; Appearance Urine Clear (Clear); Glucose Urine UA Negative (Negative); Hematocrit 33.2 % (37.0-47.0); Hemoglobin 10.2 g/dL (12.0-15.0); Immature Granulocyte Percent A 0.4 % (0-0.5); Leukocyte Esterase Ur Negative LEU/UL (Negative); Lymphocytes Absolute Auto 1.63 K/mm3 (0.9-3.2); Mean Corpuscular HGB Conc 30.7 g/dl (32-36); Mean Corpuscular Hemoglobin 24.2 pg (26-34); Mean Corpuscular Volume 78.7 fl (80-100); Nitrate Urine Negative (Negative); Nucleated Red Blood Cells Absolute Auto 0.000 K/mm3 (0.0-0.012); Nucleated Red Blood Cells Perc 0.0 % (0.0-0.2); Platelet Count Result 281 k/mm3 (150-375); Red Blood Count 4.22 M/mm3 (4.2-5.4); Specific Grav Ur 1.008 (1.001-1.035); White Blood Count 8.0 K/mm3 (4.5-10.0)
[2025-05-08 14:37] LABS: INR 1.0; Prothrombin Time 13.1 Seconds (11.1-14.7)
[2025-05-08 14:38] LABS: Partial Thromboplastin Time 25.4 Seconds (22.3-36.8)
[2025-05-08 14:44] LABS: Alanine Aminotransferase 17 U/L (6-35); Albumin Level 4.5 g/dL (3.5-5.1); Alkaline Phosphatase 46 U/L (38-126); Anion Gap 7 mmol/L (4-12); Aspartate Amino Transferase 22 U/L (14-36); Bilirubin,Total 0.5 mg/dL (0.2-1.3); Blood Urea Nitrogen 17 mg/dL (7-17); Calcium 9.2 mg/dL (8.4-10.2); Carbon Dioxide 26 mmol/L (22-30); Chloride 106 mmol/L (98-107); Estimated Glomerular Filt Rate > 60; Glucose 85 mg/dL (65-110); Magnesium 1.9 mg/dL (1.6-2.3); Potassium 3.8 mmol/L (3.4-5.0); Sodium 139 mmol/L (137-145); Total Protein 7.6 g/dL (6.3-8.2)
[2025-05-08 14:52] LABS: BEDSIDEPREGUCG Negative (Negative)
[2025-05-08 15:14] LABS: Thyroid Stimulating Hormone Reflex 0.429 uIU/mL (0.465-4.68)
[2025-05-08 15:25] VITALS: BP 147/88; PULSE 99; RESP 16; O2SAT 100
--- NOTE | 2025-05-08 15:28 | PC.NURSE ---
Pt advised to keep her arm straight to allow her fluids to finish.
[2025-05-08 15:50] LABS: Free T4 Free Thyroxine Reflex 1.22 ng/dL (0.78-2.19)
[2025-05-08 16:31] VITALS: BP 138/78; PULSE 99; RESP 16; O2SAT 100
[2025-05-08 16:42] LABS: Alanine Aminotransferase 17 U/L (6-35); Albumin Level 4.4 g/dL (3.5-5.1); Alkaline Phosphatase 44 U/L (38-126); Anion Gap 9 mmol/L (4-12); Aspartate Amino Transferase 20 U/L (14-36); Bilirubin,Total 0.5 mg/dL (0.2-1.3); Blood Urea Nitrogen 17 mg/dL (7-17); Calcium 9.5 mg/dL (8.4-10.2); Carbon Dioxide 24 mmol/L (22-30); Chloride 106 mmol/L (98-107); Estimated Glomerular Filt Rate > 60; Glucose 90 mg/dL (65-110); Potassium 4.1 mmol/L (3.4-5.0); Sodium 139 mmol/L (137-145); Total Protein 7.3 g/dL (6.3-8.2)
[2025-05-08 16:54] LABS: Total Triiodothyronine (T3) 1.00 NG/ML (0.82-1.58)
== END 2025-05-08 16:35 | disposition home or self-care (01) ==
PROVIDERS: Emergency Provider Emergency Medicine; PCP Emergency Medicine
DX: R00.2 Palpitations (principal); F41.9 Anxiety disorder, unspecified; I10 Essential (primary) hypertension; E78.5 Hyperlipidemia, unspecified; E89.0 Postprocedural hypothyroidism; E55.9 Vitamin D deficiency, unspecified; R73.03 Prediabetes; F32.A Depression, unspecified; Z90.49 Acquired absence of other specified parts of digestive tract; Z90.79 Acquired absence of other genital organ(s); Z90.721 Acquired absence of ovaries, unilateral; Z79.85 Long-term (current) use of injectable non-insulin antidiabetic drugs; Z79.899 Other long term (current) drug therapy; R00.0 Tachycardia, unspecified; R94.31 Abnormal electrocardiogram [ECG] [EKG]
CPT/HCPCS: 36415; 71045; 80053; 81003; 81025; 83735; 84439; 84443; 84480; 85025; 85610; 85730; 93005; 96360; 99283; A9270; J7120